=== PATIENT | male | born 1950 | race Caucasian/White ===

== ENCOUNTER 2017-10-23 13:47 | Inpatient (IN) | payer MEDICARE, OTHER ==
[2017-10-23] MEDS ORDERED: NovoLOG Insulin SQ PRN (14:00)
[2017-10-23 15:19] LABS: BASOPHIL % 0.2 % (0.0-0.4); Basophil (Absolute #) 0.02 (0-0.4); Eosinophil (Absolute #) 0 (0-0.5); Granulocyte Absolute (ANC) 9.75 (1.4-6.9); Granulocytes % 83.3 % (36.0-66.0); Hematocrit 42.5 % (42-50); Hemoglobin 13.7 gm/dl (12.5-18.0); Lymphocyte (Absolute #) 1.14 (1.0-4.6); Lymphocytes % 9.8 % (24.0-44.0); Mean Cell Volume 89.1 fl (78-100); Mean Corpuscular Hemoglobin 28.7 pg (26-32); Mean Corpuscular Hgb Concent. 32.2 g/dl (32-36); Mean Platelet Volume 8.7 fl (6-9.5); Monocyte (Absolute #) 0.78 (0.0-1.3); Monocytes % 6.7 % (0.0-12.0); Platelet Count 264 K/mm3 (150-450); Red Blood Count 4.77 M/mm3 (4.1-5.6); Red Cell Distribution Width 17.3 % (11.5-14.0); White Blood Count 11.7 K/mm3 (4.0-10.5)
--- NOTE | 2017-10-23 15:31 | XRAY ---
Exam: Right lower extremity duplex Doppler venous ultrasound from 10/23/2017. Comparison: Left lower extremity duplex Doppler venous ultrasound exam from 03/21/2015. Indication: Right lower leg cellulitis. Findings: Examination was carried out in the usual manner from right groin to knee using grayscale imaging, color flow imaging, Doppler tracings, and transducer compression. Images were also obtained of the medial aspect of the right ankle at the level of the distal posterior tibial veins. Echogenic clot consistent with DVT is seen from the right mid superficial femoral vein through the popliteal vein. No transducer compression was seen at these levels. Subcutaneous soft tissue swelling/edema is noted. The right common femoral vein, distal greater saphenous vein, and proximal superficial femoral vein appeared unremarkable. The visualized profunda femoral vein within the proximal right thigh appeared unremarkable. Normal transducer compression was seen at these levels. In addition, there was normal compression of the distal posterior tibial veins medial to the left ankle. Subcutaneous soft tissue swelling/edema is again seen at this level. Incidentally, a 3.8 cm in length, enlarged, but benign-appearing lymph node is seen within the right groin. Impression: 1. Findings consistent with deep venous thrombosis extending from the popliteal vein up to the mid superficial femoral vein of the right lower extremity. 2. Subcutaneous edema/soft tissue swelling is noted about the distal right thigh and distal right lower leg. 3. An enlarged, benign-appearing lymph node is seen within the right groin measuring 3.8 cm in greatest length.
[2017-10-23] MEDS ORDERED: TYLENOL 325 MG PO PRN (15:53)
[2017-10-23] MEDS ORDERED: Zofran 4 MG/2 ML VIAL IV PRN (15:53)
[2017-10-23] MEDS ORDERED: OXYCODONE-ACETAMINOPHEN 10-325 PO PRN (15:53)
[2017-10-23] MEDS ORDERED: VANCOCIN IV SCH (16:00)
[2017-10-23] MEDS ORDERED: DEXTROSE 5% IV SCH (16:00)
[2017-10-23] MEDS ORDERED: [UNRECOGNIZED DRUG - OTHER] IV SCH (16:00)
[2017-10-23] MEDS: ENOXAPARIN SODIUM SQ SCH (16:09)
[2017-10-23] MEDS ORDERED: Nitrostat 0.4 MG Tablet SL PRN (16:45)
[2017-10-23] MEDS: Novolin 70/30 SQ SCH (17:12)
[2017-10-23] MEDS ORDERED: MEDICATION INTERVENTION MC SCH (17:30)
[2017-10-23 18:48] LABS: ALBUMIN 3.8 g/dL (3.5-5.0); BILIRUBIN,TOTAL 1.3 mg/dL (0.2-1.3); Calcium 9.3 mg/dL (8.4-10.2); Creatinine 1 1.56 mg/dL (0.66-1.25); Total Protein 7.6 g/dL (6.3-8.2)
[2017-10-23 18:50] LABS: Potassium 4.4 mmol/L (3.5-5.1)
[2017-10-23] MEDS ORDERED: FLUTICASONE IH SCH (19:00)
[2017-10-23] MEDS ORDERED: SALMETEROL IH SCH (19:00)
[2017-10-23 19:01] LABS: ANION GAP 14.4 MEQ/L (5-15)
[2017-10-23] MEDS: Advair Hfa 115/21 Common canister IH SCH (19:47)
[2017-10-23] MEDS: ZOCOR 20MG PO SCH (21:31)
[2017-10-23] MEDS: NEURONTIN 300 MG PO SCH (21:32)
[2017-10-23] MEDS: Coreg 3.125 MG PO SCH (21:32)
[2017-10-23] MEDS: Flomax 0.4 MG PO SCH (21:32)
[2017-10-23] MEDS ORDERED: ELIQUIS 5 MG TABLET PO SCH (22:00)
[2017-10-23] MEDS ORDERED: NON-FORMULARY ITEM PO ONE (22:00)
[2017-10-23] MEDS ORDERED: Novolin 70/30 SQ SCH (22:00)
[2017-10-23] MEDS ORDERED: ACLIDINIUM BROMIDE 400 MCG IH SCH (22:00)
[2017-10-23] MEDS ORDERED: Coreg 6.25 MG PO SCH (22:00)
[2017-10-24] MEDS ORDERED: ENOXAPARIN SODIUM SQ ONE (04:08)
[2017-10-24] MEDS: ENOXAPARIN SODIUM SQ SCH ×2 (04:09→15:24)
[2017-10-24] MEDS ORDERED: NON-FORMULARY ITEM PO ONE (08:00)
[2017-10-24] MEDS: Novolin 70/30 SQ SCH ×2 (08:01→17:23)
--- NOTE | 2017-10-24 08:16 | PCM.NOTE ---
Date and Time: 10/24/17812 Subjective Assessment: patient comfortable, no new complaints or concerns. feels ok, tolerating po. chills seem better today Objective Exam General Appearance: no apparent distress, obese Skin Exam: normal color, warm, dry Respiratory Exam: normal breath sounds, lungs clear, No respiratory distress Cardiovascular Exam: regular rate/rhythm, normal heart sounds Extremity Exam: other (right lower extremity erythematous, warm to touch. 2+ swelling, small open area right anterior barrios) OBJECTIVE DATA Vital Signs: Vital Signs - 24 hr Temp Pulse Resp BP Pulse Ox 10/24/17 07:11 97.9 F 67 18 111/53 96 10/24/17 04:10 98.5 F 60 18 105/56 96 10/23/17 23:51 98.9 F 77 20 90/52 96 10/23/17 20:28 84 18 93 L 10/23/17 20:00 100.2 F 81 24 99/57 92 L 10/23/17 16:00 99.6 F 10/23/17 14:16 98.8 F 78 18 110/57 97 Oxygen-Last 24 hours O2 Percentage 2 Liters = 28% O2 Percentage 3 Liters = 32% O2 Percentage 2 Liters = 28% Pain Assessment - Last Documented Pain Intensity 0 Pain Scale Used 0-10 Pain Scale,FLACC Intake and Output: Intake & Output 10/21/17 10/22/17 10/23/17 10/24/17 11:59 11:59 11:59 11:59 Intake Total 300 Balance 300 Weight 114.3 kg Lab Results: Accuchecks Date 10/23/17 Time 21:47 Accucheck Value: 161 Accucheck Value: 164 Lab Results-Last 24 Hours 10/23/17 10/23/17 Range/Units 15:10 15:10 WBC 11.7 H (4.0-10.5) K/mm3 RBC 4.77 (4.1-5.6) M/mm3 Hgb 13.7 (12.5-18.0) gm/dl Hct 42.5 (42-50) % MCV 89.1 (78-100) fl MCH 28.7 (26-32) pg MCHC 32.2 (32-36) g/dl RDW 17.3 H (11.5-14.0) % Plt Count 264 (150-450) K/mm3 MPV 8.7 (6-9.5) fl Gran % 83.3 H (36.0-66.0) % Eos # (Auto) 0 (0-0.5) Absolute Lymphs (auto) 1.14 (1.0-4.6) Absolute Monos (auto) 0.78 (0.0-1.3) Lymphocytes % 9.8 L (24.0-44.0) % Monocytes % 6.7 (0.0-12.0) % Eosinophils % 0.0 (0.00-5.0) % Basophils % 0.2 (0.0-0.4) % Absolute Granulocytes 9.75 H (1.4-6.9) Basophils # 0.02 (0-0.4) Sodium 138 (137-145) mmol/L Potassium 4.4 (3.5-5.1) mmol/L Chloride 104 (98-107) mmol/L Carbon Dioxide 24 (22-30) mmol/L Anion Gap 14.4 (5-15) MEQ/L BUN 23 H (9-20) mg/dL Creatinine 1.56 H (0.66-1.25) mg/dL Estimated GFR 47.3 ML/MIN Glucose 199 H (74-106) mg/dL Calcium 9.3 (8.4-10.2) mg/dL Total Bilirubin 1.30 (0.2-1.3) mg/dL AST 17 (17-59) U/L ALT 9 (0-50) U/L Alkaline Phosphatase 68 (38-126) U/L Serum Total Protein 7.6 (6.3-8.2) g/dL Albumin 3.8 (3.5-5.0) g/dL Radiology Exams: Radiology Procedures Category Date Time Status VENOUS UNILAT/LIMITED EXTREMIT [US] Routine Exams 10/23/17 14:30 Completed Multi-Disciplinary Progress Notes: Multi-Disciplinary Progress Notes 10/23/17 16:31 Physical Therapy Note by Zulema Linder INITIATED THIS PM .....PALLIATIVE TX STARTED = BARRIER OINTMENT TO BOTH LOWER LEGS AND FEET; ICE APPLICATION FOR LOCALIZED COOLING OF WARM,RED,PAINFUL RIGHT LOWER LEG. WILL RE-ASSESS IN THE AM. ADVISED NURSING TO CONTINUE TOPICAL TXS INDICATED. Initialized on 10/23/17 16:31 - END OF NOTE 10/23/17 15:24 Pharmacy Note by Bala Ibarra PHARMAC[facility] DOSING VANCOMYCIN: LOADING DOSE = 2.25 GM 1XONLY. WAITING ON LABS FOR MAINTENANCE DOSE. TERRANCE Initialized on 10/23/17 15:24 - END OF NOTE Assessment/Plan (1) Cellulitis Current Visit: Yes Status: Acute Onset Date: ~10/23/17 Assessment & Plan: continue vanc and rocephin at this time. Code(s): L03.90 - CELLULITIS, UNSPECIFIED (2) DVT (deep venous thrombosis) Current Visit: Yes Status: Acute Assessment & Plan: on lovenox, developed while on Eliquis Code(s): I82.409 - ACUTE EMBOLISM AND THOMBOS UNSP DEEP VN UNSP LOWER EXTREMITY (3) Peripheral vascular disease Current Visit: Yes Status: Acute Assessment & Plan: appears stable at this time Code(s): I73.9 - PERIPHERAL VASCULAR DISEASE, UNSPECIFIED (4) Diabetes mellitus type 2 in obese Current Visit: Yes Status: Acute Assessment & Plan: stable on current regimen Code(s): E11.69 - TYPE 2 DIABETES MELLITUS WITH OTHER SPECIFIED COMPLICATION; E66.9 - OBESITY, UNSPECIFIED
[2017-10-24] MEDS: PLAVIX 75 MG Tablet PO SCH (09:16)
[2017-10-24] MEDS: NEURONTIN 300 MG PO SCH ×3 (09:16→21:54)
[2017-10-24] MEDS: Pepcid 20 MG PO SCH (09:16)
[2017-10-24] MEDS: Altace 1.25 MG PO SCH (09:16)
[2017-10-24] MEDS: ROCEPHIN 1 Gm-D5w 50 ml Bag** 1 G/50 ML IVPB IV SCH (09:16)
[2017-10-24] MEDS: Tricor 145 MG PO SCH (09:16)
[2017-10-24] MEDS: Imdur 60MG PO SCH (09:16)
[2017-10-24] MEDS: Coreg 3.125 MG PO SCH ×2 (09:17→21:54)
[2017-10-24] MEDS: LASIX 20 MG PO SCH (09:17)
[2017-10-24] MEDS: Protonix 40MG Tablet PO SCH (09:17)
[2017-10-24] MEDS: PATIENT OWN MEDICATION PO SCH (09:18)
[2017-10-24] MEDS ORDERED: PLAVIX 75 MG Tablet PO SCH (10:00)
[2017-10-24] MEDS ORDERED: NON-FORMULARY ITEM (Omeprazole [Prilosec] 40 MG) PO SCH (10:00)
[2017-10-24] MEDS ORDERED: NON-FORMULARY ITEM (Simvastatin 40 Mg [Zocor 40 Mg] 20 MG) PO SCH (10:00)
[2017-10-24] MEDS ORDERED: RAMIPRIL 2.5 MG PO SCH (10:00)
[2017-10-24] MEDS ORDERED: LASIX 20 MG PO SCH (10:00)
[2017-10-24] MEDS: Advair Hfa 115/21 Common canister IH SCH ×2 (10:15→19:28)
[2017-10-24] MEDS: PATIENT OWN MEDICATION IH SCH ×2 (10:15→19:29)
[2017-10-24] MEDS: Pletal 100 MG PO SCH (17:23)
[2017-10-24] MEDS: Flomax 0.4 MG PO SCH (21:54)
[2017-10-24] MEDS: ZOCOR 20MG PO SCH (21:54)
[2017-10-24] MEDS: DEXTROSE 5% IV SCH (21:57)
[2017-10-24] MEDS: VANCOCIN IV SCH (21:57)
[2017-10-24] MEDS: [UNRECOGNIZED DRUG - OTHER] IV SCH (21:57)
[2017-10-25] MEDS: ENOXAPARIN SODIUM SQ SCH ×2 (03:36→16:29)
[2017-10-25 06:06] LABS: BASOPHIL % 0.5 % (0.0-0.4); Basophil (Absolute #) 0.03 (0-0.4); Eosinophil % 5.1 % (0.00-5.0); Eosinophil (Absolute #) 0.28 (0-0.5); Granulocyte Absolute (ANC) 3.36 (1.4-6.9); Granulocytes % 61.1 % (36.0-66.0); Hematocrit 37.2 % (42-50); Hemoglobin 11.9 gm/dl (12.5-18.0); Lymphocyte (Absolute #) 1.16 (1.0-4.6); Lymphocytes % 21.1 % (24.0-44.0); Mean Cell Volume 89.6 fl (78-100); Mean Platelet Volume 9.5 fl (6-9.5); Monocyte (Absolute #) 0.67 (0.0-1.3); Monocytes % 12.2 % (0.0-12.0); Platelet Count 261 K/mm3 (150-450); Red Blood Count 4.15 M/mm3 (4.1-5.6); White Blood Count 5.5 K/mm3 (4.0-10.5)
[2017-10-25 06:24] LABS: Mean Corpuscular Hemoglobin 28.6 pg (26-32)
[2017-10-25 06:38] LABS: ANION GAP 9.6 MEQ/L (5-15); Calcium 8.5 mg/dL (8.4-10.2); Creatinine 1 1.57 mg/dL (0.66-1.25); Potassium 3.8 mmol/L (3.5-5.1)
[2017-10-25] MEDS: PATIENT OWN MEDICATION IH SCH ×2 (07:50→19:24)
[2017-10-25] MEDS: Advair Hfa 115/21 Common canister IH SCH ×2 (07:50→19:24)
[2017-10-25] MEDS: Novolin 70/30 SQ SCH ×2 (07:55→16:31)
[2017-10-25] MEDS: Pletal 100 MG PO SCH ×2 (07:55→16:28)
--- NOTE | 2017-10-25 08:20 | PCM.NOTE ---
Date and Time: 10/25/17818 Subjective Assessment: doing well today, no problems or complaints. thinks he feels about the same at this point Objective Exam General Appearance: no apparent distress, alert Respiratory Exam: normal breath sounds, lungs clear, No respiratory distress Cardiovascular Exam: regular rate/rhythm, normal heart sounds Gastrointestinal/Abdomen Exam: soft, No tenderness, No mass Extremity Exam: other (right lower leg erythematous, warm to touch. 1+ swelling) OBJECTIVE DATA Vital Signs: Vital Signs - 24 hr Temp Pulse Resp BP Pulse Ox 10/25/17 07:51 64 16 94 L 10/25/17 04:00 98.4 F 57 L 20 101/56 97 10/25/17 00:00 98.3 F 64 18 97/52 96 10/24/17 20:00 97.9 F 69 20 111/59 96 10/24/17 19:34 67 16 94 L 10/24/17 16:19 98 F 69 20 100/59 95 10/24/17 12:00 97.7 F 75 18 89/50 94 L 10/24/17 10:00 676 H 18 92 L Oxygen-Last 24 hours O2 Percentage 3 Liters = 32% Pain Assessment - Last Documented Pain Intensity 0 Pain Scale Used 0-10 Pain Scale,FLACC Intake and Output: Intake & Output 10/22/17 10/23/17 10/24/17 10/25/17 11:59 11:59 11:59 11:59 Intake Total 660 2334 Output Total 400 900 Balance 260 1434 Weight 114.3 kg 114.3 kg Lab Results: Accuchecks Date 10/24/17 Time 22:27 Accucheck Value: 162 Accucheck Value: 184 Accucheck Value: 117 Lab Results-Last 24 Hours 10/25/17 10/25/17 Range/Units 05:40 05:40 WBC 5.5 (4.0-10.5) K/mm3 RBC 4.15 (4.1-5.6) M/mm3 Hgb 11.9 L (12.5-18.0) gm/dl Hct 37.2 L (42-50) % MCV 89.6 (78-100) fl MCH 28.6 (26-32) pg MCHC 32.0 (32-36) g/dl RDW 17.0 H (11.5-14.0) % Plt Count 261 (150-450) K/mm3 MPV 9.5 (6-9.5) fl Gran % 61.1 (36.0-66.0) % Eos # (Auto) 0.28 (0-0.5) Absolute Lymphs (auto) 1.16 (1.0-4.6) Absolute Monos (auto) 0.67 (0.0-1.3) Lymphocytes % 21.1 L (24.0-44.0) % Monocytes % 12.2 H (0.0-12.0) % Eosinophils % 5.1 H (0.00-5.0) % Basophils % 0.5 (0.0-0.4) % Absolute Granulocytes 3.36 (1.4-6.9) Basophils # 0.03 (0-0.4) Sodium 138 (137-145) mmol/L Potassium 3.8 (3.5-5.1) mmol/L Chloride 108 H (98-107) mmol/L Carbon Dioxide 24 (22-30) mmol/L Anion Gap 9.6 (5-15) MEQ/L BUN 24 H (9-20) mg/dL Creatinine 1.57 H (0.66-1.25) mg/dL Estimated GFR 46.9 ML/MIN Glucose 107 H (74-106) mg/dL Calcium 8.5 (8.4-10.2) mg/dL Radiology Exams: Radiology Procedures Category Date Time Status VENOUS UNILAT/LIMITED EXTREMIT [US] Routine Exams 10/23/17 14:30 Completed Assessment/Plan (1) Cellulitis Current Visit: Yes Status: Acute Onset Date: ~10/23/17 Assessment & Plan: continue vanc and rocephin, improving at this time Code(s): L03.90 - CELLULITIS, UNSPECIFIED (2) DVT (deep venous thrombosis) Current Visit: Yes Status: Acute Onset Date: ~10/23/17 Assessment & Plan: continue Lovenox, called report to Dr Armen Banks Vascular surgeon at [facility] yesterday and left a message with nursing for update per patient request. Code(s): I82.409 - ACUTE EMBOLISM AND THOMBOS UNSP DEEP VN UNSP LOWER EXTREMITY (3) Peripheral vascular disease Current Visit: Yes Status: Acute Onset Date: ~05/30/18 Code(s): I73.9 - PERIPHERAL VASCULAR DISEASE, UNSPECIFIED (4) Diabetes mellitus type 2 in obese Current Visit: Yes Status: Acute Onset Date: ~10/23/17 Code(s): E11.69 - TYPE 2 DIABETES MELLITUS WITH OTHER SPECIFIED COMPLICATION; E66.9 - OBESITY, UNSPECIFIED
[2017-10-25] MEDS: NEURONTIN 300 MG PO SCH ×3 (10:23→22:05)
[2017-10-25] MEDS: Protonix 40MG Tablet PO SCH (10:23)
[2017-10-25] MEDS: Tricor 145 MG PO SCH (10:23)
[2017-10-25] MEDS: ROCEPHIN 1 Gm-D5w 50 ml Bag** 1 G/50 ML IVPB IV SCH (10:23)
[2017-10-25] MEDS: Pepcid 20 MG PO SCH (10:23)
[2017-10-25] MEDS: PLAVIX 75 MG Tablet PO SCH (10:23)
[2017-10-25] MEDS: Imdur 60MG PO SCH (10:24)
[2017-10-25] MEDS: PATIENT OWN MEDICATION PO SCH (10:24)
[2017-10-25] MEDS: Altace 1.25 MG PO SCH (10:24)
[2017-10-25] MEDS: Coreg 3.125 MG PO SCH ×2 (10:24→22:05)
[2017-10-25] MEDS: LASIX 20 MG PO SCH (10:24)
[2017-10-25] MEDS: Flomax 0.4 MG PO SCH (22:05)
[2017-10-25] MEDS: DEXTROSE 5% IV SCH (22:05)
[2017-10-25] MEDS: ZOCOR 20MG PO SCH (22:05)
[2017-10-25] MEDS: VANCOCIN IV SCH (22:05)
[2017-10-25] MEDS: [UNRECOGNIZED DRUG - OTHER] IV SCH (22:05)
[2017-10-26] MEDS: ENOXAPARIN SODIUM SQ SCH ×2 (03:45→17:10)
[2017-10-26] MEDS: Pletal 100 MG PO SCH ×2 (07:52→17:10)
[2017-10-26] MEDS: Novolin 70/30 SQ SCH ×2 (07:52→17:10)
[2017-10-26] MEDS: Protonix 40MG Tablet PO SCH (09:43)
[2017-10-26] MEDS: Pepcid 20 MG PO SCH (09:43)
[2017-10-26] MEDS: Coreg 3.125 MG PO SCH ×2 (09:44→22:10)
[2017-10-26] MEDS: NEURONTIN 300 MG PO SCH ×3 (09:44→22:10)
[2017-10-26] MEDS: LASIX 20 MG PO SCH (09:44)
[2017-10-26] MEDS: PLAVIX 75 MG Tablet PO SCH (09:44)
[2017-10-26] MEDS: Tricor 145 MG PO SCH (09:44)
[2017-10-26] MEDS: Imdur 60MG PO SCH (09:44)
[2017-10-26] MEDS: Altace 1.25 MG PO SCH (09:44)
[2017-10-26] MEDS: ROCEPHIN 1 Gm-D5w 50 ml Bag** 1 G/50 ML IVPB IV SCH (09:45)
[2017-10-26] MEDS: PATIENT OWN MEDICATION PO SCH (09:51)
[2017-10-26] MEDS: Advair Hfa 115/21 Common canister IH SCH ×2 (10:19→20:23)
[2017-10-26] MEDS: PATIENT OWN MEDICATION IH SCH ×2 (10:20→20:23)
--- NOTE | 2017-10-26 12:23 | PCM.NOTE ---
Date and Time: 10/26/17 1217 Subjective Assessment: Pt is standing up at the sink cleaning his cpap mask. Has been standing at least 20 min. Complaining of 8/10 R foot pain. [place] po. Doesn't think there is an improvement in the leg since admission. - Review of Systems Constitutional: No Fever Skin: Cellulitis Objective Exam General Appearance: no apparent distress, alert, obese Neurologic Exam: oriented x 3, cooperative Neck Exam: normal inspection Respiratory Exam: normal breath sounds, lungs clear, No crackles/rales, No rhonchi, No wheezing Cardiovascular Exam: regular rate/rhythm, normal heart sounds, No murmur Extremity Exam: other (RLE: anterio mid lower leg with approx 2x2cm defect covered with barrier cream. leg and foot with 1+ edema throughout. leg erythematous distal 2/3. 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; there is an irregular defect at that site, covered with barrier cream.) OBJECTIVE DATA Vital Signs: Vital Signs - 24 hr Temp Pulse Resp BP Pulse Ox 10/26/17 12:00 98.3 F 61 18 98/56 94 L 10/26/17 10:22 72 18 95 10/26/17 08:00 18 10/26/17 07:32 98.6 F 59 L 18 107/57 94 L 10/26/17 04:00 98.5 F 66 16 93/54 95 10/26/17 00:00 17 10/25/17 23:51 98.3 F 103 H 17 107/75 95 10/25/17 20:00 97.7 F 69 20 92/55 95 10/25/17 19:24 68 18 94 L 10/25/17 16:00 98.4 F 71 18 108/55 95 Oxygen-Last 24 hours O2 Percentage 3 Liters = 32% Pain Assessment - Last Documented Pain Intensity 1 Pain Scale Used 0-10 Pain Scale Intake and Output: Intake & Output 10/24/17 10/25/17 10/26/17 10/27/17 11:59 11:59 11:59 11:59 Intake Total 660 6484 2099 Output Total 400 900 Balance 260 9343 209 Weight 114.3 kg 114.3 kg Lab Results: Accuchecks Date 10/26/17 Date 10/26/17 Date 10/25/17 Date 10/25/17 Time 11:30 Time 07:30 Time 21:00 Time 16:30 Accucheck Value: 113 Accucheck Value: 179 Accucheck Value: 175 Accucheck Value: 175 Multi-Disciplinary Progress Notes: Multi-Disciplinary Progress Notes 10/25/17 13:54 Case Management Note by Genevieve Dee CALL TO [facility] TO REPORT THAT PT WAS IN HOSPITAL. SPOKE WITH ELISEO. REQUESTS THAT DISCHARGE INFORMATION BE FAXED TO [phone] ON DISCHARGE. Initialized on 10/25/17 13:54 - END OF NOTE Assessment/Plan (1) Cellulitis Current Visit: Yes Status: Acute Onset Date: ~10/23/17 Qualifiers: Site of cellulitis: extremity Site of cellulitis of extremity: lower extremity Laterality: right Qualified Code(s): L03.115 - Cellulitis of right lower limb Assessment & Plan: Pt is on Vancomycin and rocephin day #3. Will continue current treatment. Clinically stable. Code(s): L03.90 - CELLULITIS, UNSPECIFIED (2) DVT (deep venous thrombosis) Current Visit: Yes Status: Acute Onset Date: ~10/23/17 Qualifiers: DVT location: lower extremity Affected thrombotic vein of extremity: popliteal Chronicity: acute Laterality: right Qualified Code(s): I82.431 - Acute embolism and thrombosis of right popliteal vein Assessment & Plan: On lovenox, treatment dose. He is not having pain in the leg,but in the foot. Code(s): I82.409 - ACUTE EMBOLISM AND THOMBOS UNSP DEEP VN UNSP LOWER EXTREMITY (3) Diabetes mellitus type 2 in obese Current Visit: Yes Status: Chronic Onset Date: ~10/23/17 Assessment & Plan: BS 98-179 Code(s): E11.69 - TYPE 2 DIABETES MELLITUS WITH OTHER SPECIFIED COMPLICATION; E66.9 - OBESITY, UNSPECIFIED (4) Diabetic foot ulcer Current Visit: Yes Status: Acute Onset Date: ~10/23/17 Qualifiers: Diabetes mellitus type: type 2 Laterality: right Code(s): E11.621 - TYPE 2 DIABETES MELLITUS WITH FOOT ULCER; L97.509 - NON- PRESSURE CHRONIC ULCER OTH PRT UNSP FOOT W UNSP SEVERITY (5) Peripheral vascular disease Current Visit: Yes Status: Chronic Onset Date: ~10/23/17 Code(s): I73.9 - PERIPHERAL VASCULAR DISEASE, UNSPECIFIED
[2017-10-26] MEDS: DEXTROSE 5% IV SCH (22:05)
[2017-10-26] MEDS: VANCOCIN IV SCH (22:05)
[2017-10-26] MEDS: [UNRECOGNIZED DRUG - OTHER] IV SCH (22:05)
[2017-10-26] MEDS: Flomax 0.4 MG PO SCH (22:10)
[2017-10-26] MEDS: ZOCOR 20MG PO SCH (22:10)
[2017-10-27] MEDS: ENOXAPARIN SODIUM SQ SCH ×2 (03:34→15:49)
[2017-10-27] MEDS: Advair Hfa 115/21 Common canister IH SCH ×2 (08:05→19:27)
[2017-10-27] MEDS: PATIENT OWN MEDICATION IH SCH ×2 (08:06→19:29)
[2017-10-27] MEDS: Pletal 100 MG PO SCH ×2 (08:10→15:45)
[2017-10-27] MEDS: Novolin 70/30 SQ SCH ×2 (08:11→17:25)
[2017-10-27] MEDS: Coreg 3.125 MG PO SCH ×2 (09:58→21:29)
[2017-10-27] MEDS: ROCEPHIN 1 Gm-D5w 50 ml Bag** 1 G/50 ML IVPB IV SCH (09:58)
[2017-10-27] MEDS: NEURONTIN 300 MG PO SCH ×3 (09:58→21:30)
[2017-10-27] MEDS: LASIX 20 MG PO SCH (09:58)
[2017-10-27] MEDS: Protonix 40MG Tablet PO SCH (09:58)
[2017-10-27] MEDS: Imdur 60MG PO SCH (09:58)
[2017-10-27] MEDS: Pepcid 20 MG PO SCH (09:58)
[2017-10-27] MEDS: Altace 1.25 MG PO SCH (09:58)
[2017-10-27] MEDS: Tricor 145 MG PO SCH (09:58)
[2017-10-27] MEDS: PLAVIX 75 MG Tablet PO SCH (09:58)
[2017-10-27] MEDS: PATIENT OWN MEDICATION PO SCH (09:59)
[2017-10-27 10:17] LABS: Hematocrit 40.9 % (42-50); Mean Cell Volume 89.5 fl (78-100); Mean Corpuscular Hemoglobin 28.4 pg (26-32); Mean Corpuscular Hgb Concent. 31.8 g/dl (32-36); Mean Platelet Volume 8.9 fl (6-9.5); Platelet Count 254 K/mm3 (150-450); Red Blood Count 4.57 M/mm3 (4.1-5.6); Red Cell Distribution Width 16.9 % (11.5-14.0); White Blood Count 5.2 K/mm3 (4.0-10.5)
[2017-10-27 10:32] LABS: ANION GAP 13.6 MEQ/L (5-15); Calcium 9.2 mg/dL (8.4-10.2); Creatinine 1 1.85 mg/dL (0.66-1.25); Potassium 4.2 mmol/L (3.5-5.1)
--- NOTE | 2017-10-27 10:39 | PCM.NOTE ---
Date and Time: 10/27/17 1034 Subjective Assessment: Denies any foot pain while at rest; when he is initially up on the foot he has pain. This is apparently a chronic issue. - Review of Systems Constitutional: No Fever Musculoskeletal: Joint Pain Objective Exam General Appearance: no apparent distress, obese, other (standing at the sink brushing his teeth) Neurologic Exam: alert, oriented x 3, cooperative Eye Exam: eyes nml inspection Ears, Nose, Throat Exam: moist mucous membranes Respiratory Exam: normal breath sounds, lungs clear, No crackles/rales, No rhonchi, No wheezing Cardiovascular Exam: regular rate/rhythm, normal heart sounds, No murmur Extremity Exam: other (LLE venous stasis change distally RLE - erythema distal 2 /3 lower leg. Generalized edema of leg as before. Defect anterior lower leg ( covered with barrier cream) with serous drainage. Defect at site of 2nd digit amputation, covered with barrier cream. toes without erythema.) Back Exam: normal inspection, No rash OBJECTIVE DATA Vital Signs: Vital Signs - 24 hr Temp Pulse Resp BP Pulse Ox 10/27/17 08:06 65 20 93 L 10/27/17 08:00 20 10/27/17 07:49 98.1 F 61 18 118/58 97 10/27/17 04:00 99.1 F 65 18 120/58 92 L 10/27/17 00:00 98.5 F 65 18 101/54 93 L 10/26/17 20:24 63 16 92 L 10/26/17 20:00 16 10/26/17 19:56 98.3 F 69 16 113/55 94 L 10/26/17 16:00 98.5 F 71 18 111/55 91 L 10/26/17 12:00 98.3 F 61 18 98/56 94 L Pain Assessment - Last Documented Pain Intensity 1 Pain Scale Used [facility] Intake and Output: Intake & Output 10/24/17 10/25/17 10/26/17 10/27/17 11:59 11:59 11:59 11:59 Intake Total 660 8662 2099 1280 Output Total 400 900 Balance 260 8627 2099 1280 Weight 114.3 kg 114.3 kg Lab Results: Accuchecks Date 10/27/17 Date 10/26/17 Date 10/26/17 Date 10/26/17 Time 08:00 Time 21:00 Time 16:30 Time 11:30 Accucheck Value: 109 Accucheck Value: 138 Accucheck Value: 151 Accucheck Value: 113 Lab Results-Last 24 Hours 18 10/27/17 Range/Units 21:34 10:10 WBC 5.2 (4.0-10.5) K/mm3 RBC 4.57 (4.1-5.6) M/mm3 Hgb 13.0 (12.5-18.0) gm/dl Hct 40.9 L (42-50) % MCV 89.5 (78-100) fl MCH 28.4 (26-32) pg MCHC 31.8 L (32-36) g/dl RDW 16.9 H (11.5-14.0) % Plt Count 254 (150-450) K/mm3 MPV 8.9 (6-9.5) fl Vancomycin Trough 18.81 (10-20) ug/mL Assessment/Plan (1) Cellulitis Current Visit: Yes Status: Acute Onset Date: ~10/23/17 Qualifiers: Site of cellulitis: extremity Site of cellulitis of extremity: lower extremity Laterality: right Qualified Code(s): L03.115 - Cellulitis of right lower limb Assessment & Plan: On vancomycin and rocephin, day #4. Will continue current treatment. The pain in the foot does not appear related to the cellulitis or the DVT. Code(s): L03.90 - CELLULITIS, UNSPECIFIED (2) DVT (deep venous thrombosis) Current Visit: Yes Status: Acute Onset Date: ~10/23/17 Qualifiers: DVT location: lower extremity Affected thrombotic vein of extremity: popliteal Chronicity: acute Laterality: right Qualified Code(s): I82.431 - Acute embolism and thrombosis of right popliteal vein Assessment & Plan: On lovenox treatment dose. Dr. De La Cruz to determine further tx tomorrow for this pt with a DVT while on anticoagulant. Code(s): I82.409 - ACUTE EMBOLISM AND THOMBOS UNSP DEEP VN UNSP LOWER EXTREMITY (3) Diabetes mellitus type 2 in obese Current Visit: Yes Status: Chronic Onset Date: ~10/23/17 Assessment & Plan: BS mostly 102-175. Code(s): E11.69 - TYPE 2 DIABETES MELLITUS WITH OTHER SPECIFIED COMPLICATION; E66.9 - OBESITY, UNSPECIFIED (4) Diabetic foot ulcer Current Visit: Yes Status: Acute Onset Date: ~10/23/17 Qualifiers: Diabetes mellitus type: type 2 Laterality: right Code(s): E11.621 - TYPE 2 DIABETES MELLITUS WITH FOOT ULCER; L97.509 - NON- PRESSURE CHRONIC ULCER OTH PRT UNSP FOOT W UNSP SEVERITY (5) Peripheral vascular disease Current Visit: Yes Status: Chronic Onset Date: ~10/23/17 Code(s): I73.9 - PERIPHERAL VASCULAR DISEASE, UNSPECIFIED
[2017-10-27] MEDS: ZOCOR 20MG PO SCH (21:30)
[2017-10-27] MEDS: Flomax 0.4 MG PO SCH (21:30)
[2017-10-27] MEDS ORDERED: VANCOCIN 1 GM VIAL*** 1.5 GM in Dextrose 5%-1/4NS IV Soln. 500 ML 500 ML IV SCH (22:00)
[2017-10-28] MEDS: ENOXAPARIN SODIUM SQ SCH (05:08)
[2017-10-28] MEDS: Advair Hfa 115/21 Common canister IH SCH (07:20)
[2017-10-28] MEDS: PATIENT OWN MEDICATION IH SCH (07:29)
--- NOTE | 2017-10-28 08:15 | PCM.DS ---
Discharge Summary Date of Admission: 10/23/17 13:52 Admitting Physician: AYDEN BORJA Primary Care Provider: AYDEN BORJA Allergies Allergies Iodinated Contrast- Oral and IV Dye Allergy (Severe, Verified 10/23/17 15:08) Iodine and Iodide Containing Produc Allergy (Severe, Verified 10/23/17 15:07) Rash Hospital Summary - Hospital Course Hospital Course: patient was admitted with RLE cellulitis, has a history of PVD with multiple surgeries to RLE including amputation of toe and bypass grafting. he was found to have new DVT RLE, has been on vanc and rocephin, warmth and swelling improved. RLE still discolored likely secondary to DVT and chronic PVD - Vitals & Intake/Output Vital Signs: Vital Signs Temperature 98.6 F 10/28/17 06:56 Pulse Rate 61 10/28/17 07:33 Respiratory Rate 18 10/28/17 07:33 Blood Pressure 117/58 10/28/17 06:56 O2 Sat by Pulse Oximetry 93 L 10/28/17 07:33 Oxygen-Last Documented O2 Percentage 3 Liters = 32% Intake & Output: Intake & Output 10/25/17 10/26/17 10/27/17 10/28/17 11:59 11:59 11:59 11:59 Intake Total 2574 2099 1280 580 Output Total 900 Balance 1674 2099 1280 580 Weight 114.3 kg - Lab Result Diagrams: 10/27/17 10:10 10/27/17 10:10 Lab Results-Last 24 Hrs: Accuchecks Date 10/27/17 Date 10/27/17 Time 16:30 Time 11:30 Accucheck Value: 230 Accucheck Value: 136 Accucheck Value: 96 Lab Results-Last 24 Hours 10/27/17 10/27/17 Range/Units 10:10 10:10 WBC 5.2 (4.0-10.5) K/mm3 RBC 4.57 (4.1-5.6) M/mm3 Hgb 13.0 (12.5-18.0) gm/dl Hct 40.9 L (42-50) % MCV 89.5 (78-100) fl MCH 28.4 (26-32) pg MCHC 31.8 L (32-36) g/dl RDW 16.9 H (11.5-14.0) % Plt Count 254 (150-450) K/mm3 MPV 8.9 (6-9.5) fl Sodium 141 (137-145) mmol/L Potassium 4.2 (3.5-5.1) mmol/L Chloride 108 H (98-107) mmol/L Carbon Dioxide 23 (22-30) mmol/L Anion Gap 13.6 (5-15) MEQ/L BUN 28 H (9-20) mg/dL Creatinine 1.85 H (0.66-1.25) mg/dL Estimated GFR 38.8 ML/MIN Glucose 113 H (74-106) mg/dL Calcium 9.2 (8.4-10.2) mg/dL Micro Results-Entire Visit: Microbiology 10/23/17 15:10 Blood Culture Gram Stain - Final Blood Not Reportable Blood Culture - Final NO GROWTH 10/23/17 15:13 Blood Culture Gram Stain - Final Blood Not Reportable Blood Culture - Final NO GROWTH Accuchecks Date 10/27/17 Date 10/27/17 Time 16:30 Time 11:30 Accucheck Value: 230 Accucheck Value: 136 Accucheck Value: 96 - Procedures and Test Procedures and Tests throughout Hospitalization: Therapy Orders & Screens 10/23/17 14:09 PT Eval & Treat ( Order) ROUTINE Reason for Eval:: Wound care Diagnosis: Cellulitis RLE 10/23/17 14:58 OT Screen per Nursing Assess ONCE Comment: Protocol Order Physician Instructions: Greater than 3 points order OT Admission Screening Reason For Exam: Triggered on Admission Diagnosis: cellulitis Open Wound/Cellutlitis/Pressure Ulcers: Yes Acute Fx/ORIF/Change in wt bearing status: No Severe MUSCULOSKELETAL pain: No ADL Dysfunction: Yes Acute CVA w/Hemiparesis/Hemiplegia: No Decreased Functional Mobility/Strength: Yes Sprain/Strain: No Acute Post-op Mobility Dysfunction: No Total Points: 9 PT Screen per Nursing Assess ONCE Comment: Protocol Order Physician Instructions: Greater than 3 points order PT Admission Screenin Reason For Exam: Triggered on Admission Diagnosis: cellulitis Open Wound/Cellutlitis/Pressure Ulcers: Yes Acute Fx/ORIF/Change in wt bearing status: No Severe MUSCULOSKELETAL pain: No ADL Dysfunction: Yes Acute CVA w/Hemiparesis/Hemiplegia: No Decreased Functional Mobility/Strength: Yes Sprain/Strain: No Acute Post-op Mobility Dysfunction: No Total Points: 9 Smoking Cessation Education ONCE Comment: Diagnosis: cellulitis Smoking Status: Current every day smoker How long have you smoked: 50 years Have you smoked in the past 12 months: Yes Approximately how many cigarettes per day: 24 Do you dip or chew tobacco: No 10/23/17 19:00 Respiratory MDI BID Comment: advair 115/21 bid Diagnosis: cellulitis Respiratory MDI BID Comment: tudorza 400 mcg bid Diagnosis: cellulitis 10/23/17 20:27 Oxygen NASAL CANNULA 3 lpm Comment: 3l with cpap at night Diagnosis: cellulitis Discharge Exam General Appearance: no apparent distress, alert Skin Exam: normal color, warm, dry Respiratory Exam: normal breath sounds, lungs clear, No respiratory distress Cardiovascular Exam: regular rate/rhythm, normal heart sounds Gastrointestinal/Abdomen Exam: soft, No tenderness, No mass Extremity Exam: other (RLE red, discolored. mild swelling) Final Diagnosis/Problem List - Final Discharge Diagnosis/Problem (1) Cellulitis Current Visit: Yes Status: Acute Onset Date: ~10/23/17 Assessment & Plan: home on po clindamycin (2) DVT (deep venous thrombosis) Current Visit: Yes Status: Acute Onset Date: ~10/23/17 Assessment & Plan: will resume Eliquis and advised patient to f/u with his vascular surgeon Dr Darren BERNARDO for further recommendations. (3) Peripheral vascular disease Current Visit: Yes Status: Chronic Onset Date: ~10/23/17 (4) Diabetes mellitus type 2 in obese Current Visit: Yes Status: Chronic Onset Date: ~10/23/17 - Discharge Disposition: Home, Self-Care Condition: Stable Prescriptions: New Clindamycin HCl 300 mg PO TID #21 capsule Continue Nitroglycerin 0.4 mg Tablet [Nitrostat 0.4 MG Tablet] 0.4 mg SL UD Carvedilol 6.25 mg [Coreg 6.25 MG] 3.125 mg PO BID Simvastatin 40 mg [Zocor 40 mg] 20 mg PO DAILY Isosorbide Mononitrate 30 mg [Imdur 30 MG] 60 mg PO DAILY Ramipril 1.25 mg [Altace 1.25 MG] 2.5 mg PO DAILY Omeprazole [Prilosec] 40 mg PO DAILY Aclidinium [place] [Tudorza Pressair] 400 mcg IH BID Fluticasone/Salmeterol 115/21* [Advair Hfa 115/21 Mcg Inhaler] 2 puff IH BIDRT Insulin NPH/Reg 30 [Novolin 70] 40 unit SQ BID Tamsulosin HCl 0.4 mg [Flomax 0.4 MG] 1 cap PO HS Ranitidine HCl 150 mg PO DAILY Gabapentin 600 mg PO TID Furosemide 20 mg [Lasix 20 mg] 20 mg PO DAILY Fenofibrate Nanocrystallized [Fenofibrate] 1 tablet PO DAILY Empagliflozin [Jardiance] 10 mg PO BID Clopidogrel Bisulfate [Clopidogrel] 75 mg PO DAILY Cilostazol 50 mg PO BID Apixaban [Eliquis 5 mg Tablet] 5 mg PO BID Follow up with: AYDEN BORJA MD [Primary Care Provider] - 1 Week
[2017-10-28] MEDS: Novolin 70/30 SQ SCH (09:21)
[2017-10-28] MEDS: Tricor 145 MG PO SCH (09:23)
[2017-10-28] MEDS: NEURONTIN 300 MG PO SCH (09:23)
[2017-10-28] MEDS: ROCEPHIN 1 Gm-D5w 50 ml Bag** 1 G/50 ML IVPB IV SCH (09:23)
[2017-10-28] MEDS: Pletal 100 MG PO SCH (09:23)
[2017-10-28] MEDS: PLAVIX 75 MG Tablet PO SCH (09:24)
[2017-10-28] MEDS: LASIX 20 MG PO SCH (09:24)
[2017-10-28] MEDS: Pepcid 20 MG PO SCH (09:24)
[2017-10-28] MEDS: Altace 1.25 MG PO SCH (09:24)
[2017-10-28] MEDS: Imdur 60MG PO SCH (09:24)
[2017-10-28] MEDS: Coreg 3.125 MG PO SCH (09:24)
[2017-10-28] MEDS: PATIENT OWN MEDICATION PO SCH (09:24)
[2017-10-28] MEDS: Protonix 40MG Tablet PO SCH (09:27)
[2017-10-28 11:08] VITALS: BP 90/52; PULSE 71; O2SAT 96
[2017-10-28] MEDS ORDERED: TROUGH DRUG LEVELS IJ ONE (21:30)
== END 2017-10-28 13:05 | disposition home health service (06) | DRG 603 ==
LOC: MED SURG 13:52
PROVIDERS: ADMIT Family Medicine; ATTEND Family Medicine
DX: L03.115 Cellulitis of right lower limb (principal); I82.431 Acute embolism and thrombosis of right popliteal vein; I82.409 Acute embolism and thrombosis of unspecified deep veins of unspecified lower extremity; E11.69 Type 2 diabetes mellitus with other specified complication; E66.9 Obesity, unspecified; E11.621 Type 2 diabetes mellitus with foot ulcer; L97.509 Non-pressure chronic ulcer of other part of unspecified foot with unspecified severity; I73.9 Peripheral vascular disease, unspecified; Z79.01 Long term (current) use of anticoagulants; Z79.899 Other long term (current) drug therapy; I25.10 Atherosclerotic heart disease of native coronary artery without angina pectoris; J44.9 Chronic obstructive pulmonary disease, unspecified; M79.673 Pain in unspecified foot
CPT/HCPCS: 36415; 80048; 80053; 80202; 85025; 85027; 87040; 93971; 94640; 94760; J0696; J1650; J1815; J3370; A9270-GY

== ENCOUNTER 2017-11-13 10:43 | Inpatient (IN) | payer MEDICARE, OTHER ==
[2017-11-13] MEDS ORDERED: MORPHINE SULFATE 4 MG INJ IV PRN (11:43)
[2017-11-13] MEDS ORDERED: Zofran 4 MG/2 ML VIAL IV PRN (11:43)
[2017-11-13] MEDS ORDERED: TYLENOL 325 MG PO PRN (11:43)
[2017-11-13] MEDS ORDERED: NovoLOG Insulin SQ PRN (11:45)
[2017-11-13] MEDS ORDERED: Sodium Chloride 0.9% 10 ML FLUSH Syringe IV PRN (11:45)
[2017-11-13 13:03] LABS: BASOPHIL % 0.1 % (0.0-0.4); Basophil (Absolute #) 0.01 (0-0.4); Eosinophil % 3.5 % (0.00-5.0); Eosinophil (Absolute #) 0.26 (0-0.5); Granulocyte Absolute (ANC) 5.62 (1.4-6.9); Granulocytes % 76.5 % (36.0-66.0); Hematocrit 41.3 % (42-50); Hemoglobin 13.3 gm/dl (12.5-18.0); Lymphocyte (Absolute #) 0.91 (1.0-4.6); Lymphocytes % 12.4 % (24.0-44.0); Mean Corpuscular Hemoglobin 28.7 pg (26-32); Mean Corpuscular Hgb Concent. 32.2 g/dl (32-36); Mean Platelet Volume 9.4 fl (6-9.5); Monocyte (Absolute #) 0.55 (0.0-1.3); Monocytes % 7.5 % (0.0-12.0); Platelet Count 245 K/mm3 (150-450); Red Blood Count 4.64 M/mm3 (4.1-5.6); Red Cell Distribution Width 17.4 % (11.5-14.0); White Blood Count 7.4 K/mm3 (4.0-10.5)
[2017-11-13 13:10] LABS: ALBUMIN 3.6 g/dL (3.5-5.0); ANION GAP 17.5 MEQ/L (5-15); BILIRUBIN,TOTAL 0.7 mg/dL (0.2-1.3); Calcium 8.7 mg/dL (8.4-10.2); Creatinine 1 2.15 mg/dL (0.66-1.25); Potassium 4.2 mmol/L (3.5-5.1); Total Protein 7.3 g/dL (6.3-8.2)
[2017-11-13] MEDS: Sodium Chloride 0.9% 10 ML FLUSH Syringe IV SCH ×2 (14:00→21:28)
[2017-11-13] MEDS: VANCOCIN 1 GM VIAL*** 2 GM in Sodium Chloride 0.9% 500 ML 500 ML IV SCH (15:46)
[2017-11-13] MEDS: Nicoderm CQ 21 MG TOP SCH (17:13)
[2017-11-13] MEDS ORDERED: Nitrostat 0.4 MG Tablet SL PRN (17:15)
[2017-11-13] MEDS ORDERED: MEDICATION INTERVENTION MC SCH (17:30)
[2017-11-13] MEDS: PATIENT OWN MEDICATION IH SCH ×2 (17:37→17:52)
[2017-11-13] MEDS ORDERED: Advair Hfa 115/21 Common canister IH SCH (19:00)
[2017-11-13] MEDS ORDERED: SALMETEROL IH SCH (19:00)
[2017-11-13] MEDS ORDERED: FLUTICASONE IH SCH (19:00)
[2017-11-13] MEDS: Flomax 0.4 MG PO SCH (21:28)
[2017-11-13] MEDS: ZOCOR 20MG PO SCH (21:28)
[2017-11-13] MEDS: NEURONTIN 300 MG PO SCH (21:28)
[2017-11-13] MEDS: ELIQUIS 2.5 MG TABLET PO SCH (21:28)
[2017-11-13] MEDS: Coreg 6.25 MG PO SCH (21:28)
[2017-11-13] MEDS ORDERED: ACLIDINIUM BROMIDE 400 MCG IH SCH (22:00)
[2017-11-13] MEDS ORDERED: Coreg 6.25 MG PO SCH (22:00)
[2017-11-14 06:20] LABS: Creatinine 1 1.97 mg/dL (0.66-1.25)
[2017-11-14] MEDS: PATIENT OWN MEDICATION IH SCH ×4 (08:26→20:11)
[2017-11-14] MEDS: NEURONTIN 300 MG PO SCH ×3 (08:38→21:50)
[2017-11-14] MEDS: Sodium Chloride 0.9% 10 ML FLUSH Syringe IV SCH ×3 (08:39→21:53)
[2017-11-14] MEDS: Coreg 6.25 MG PO SCH ×2 (08:39→21:51)
[2017-11-14] MEDS: ELIQUIS 2.5 MG TABLET PO SCH ×2 (08:39→21:50)
[2017-11-14] MEDS: Novolin 70/30 SQ SCH ×2 (08:40→16:35)
[2017-11-14] MEDS: Protonix 40MG Tablet PO SCH (08:45)
[2017-11-14] MEDS: PLAVIX 75 MG Tablet PO SCH (08:46)
[2017-11-14] MEDS: LASIX 20 MG PO SCH (08:46)
[2017-11-14] MEDS: Pepcid 20 MG PO SCH (08:46)
[2017-11-14] MEDS: Imdur 60MG PO SCH (08:46)
[2017-11-14] MEDS: Altace 1.25 MG PO SCH (08:46)
--- NOTE | 2017-11-14 09:06 | PCM.NOTE ---
Date and Time: 11/14/17 0904 Subjective Assessment: patient with no new complaints today. leg feels about the same. pain is controlled Objective Exam General Appearance: no apparent distress, alert, obese Respiratory Exam: normal breath sounds, lungs clear, No respiratory distress Cardiovascular Exam: regular rate/rhythm, normal heart sounds Gastrointestinal/Abdomen Exam: soft, No tenderness, No mass Extremity Exam: pedal edema, other (cellulitis RLE. open area between first and second toe with drainage present) OBJECTIVE DATA Vital Signs: Vital Signs - 24 hr Temp Pulse Resp BP Pulse Ox 11/14/17 08:28 67 16 96 11/14/17 07:29 98.3 F 59 L 18 102/54 95 11/14/17 04:00 99.1 F 68 16 99/51 94 L 11/14/17 00:00 100.2 F 76 15 102/55 92 L 11/13/17 20:00 99.0 F 79 18 132/63 92 L 11/13/17 17:52 71 18 92 L 11/13/17 15:54 99.3 F 68 18 115/56 91 L 11/13/17 14:56 99.2 F 77 20 106/57 94 L 11/13/17 13:00 94 L 11/13/17 10:55 99.2 F 77 18 106/57 92 L Oxygen-Last 24 hours O2 Percentage 2 Liters = 28% Pain Assessment - Last Documented Pain Scale Used 0-10 Pain Scale Intake and Output: Intake & Output 11/11/17 11/12/17 11/13/17 11/14/17 11:59 11:59 11:59 11:59 Intake Total 1800 Output Total 200 Balance 1600 Weight 111.9 kg 111.98 kg Lab Results: Accuchecks Date 11/14/17 Date 11/13/17 Date 11/13/17 Time 08:53 Time 16:30 Accucheck Value: 130 Accucheck Value: 180 Accucheck Value: 136 Lab Results-Last 24 Hours 11/13/17 11/13/17 11/14/17 Range/Units 11:30 11:30 05:30 WBC 7.4 (4.0-10.5) K/mm3 RBC 4.64 (4.1-5.6) M/mm3 Hgb 13.3 (12.5-18.0) gm/dl Hct 41.3 L (42-50) % MCV 89.0 (78-100) fl MCH 28.7 (26-32) pg MCHC 32.2 (32-36) g/dl RDW 17.4 H (11.5-14.0) % Plt Count 245 (150-450) K/mm3 MPV 9.4 (6-9.5) fl Gran % 76.5 H (36.0-66.0) % Eos # (Auto) 0.26 (0-0.5) Absolute Lymphs (auto) 0.91 L (1.0-4.6) Absolute Monos (auto) 0.55 (0.0-1.3) Lymphocytes % 12.4 L (24.0-44.0) % Monocytes % 7.5 (0.0-12.0) % Eosinophils % 3.5 (0.00-5.0) % Basophils % 0.1 (0.0-0.4) % Absolute Granulocytes 5.62 (1.4-6.9) Basophils # 0.01 (0-0.4) Sodium 141 (137-145) mmol/L Potassium 4.2 (3.5-5.1) mmol/L Chloride 105 (98-107) mmol/L Carbon Dioxide 23 (22-30) mmol/L Anion Gap 17.5 H (5-15) MEQ/L BUN 29 H (9-20) mg/dL Creatinine 2.15 H 1.97 H (0.66-1.25) mg/dL Estimated GFR 32.7 36.1 ML/MIN Glucose 201 H (74-106) mg/dL Calcium 8.7 (8.4-10.2) mg/dL Total Bilirubin 0.70 (0.2-1.3) mg/dL AST 24 (17-59) U/L ALT 8 (0-50) U/L Alkaline Phosphatase 61 (38-126) U/L Serum Total Protein 7.3 (6.3-8.2) g/dL Albumin 3.6 (3.5-5.0) g/dL Assessment/Plan (1) Cellulitis of right lower extremity Current Visit: Yes Status: Acute Onset Date: ~11/13/17 Assessment & Plan: continue IV vanc Code(s): L03.115 - CELLULITIS OF RIGHT LOWER LIMB (2) Fever Current Visit: Yes Status: Acute Onset Date: ~11/13/17 Code(s): R50.9 - FEVER, UNSPECIFIED (3) Diabetic foot ulcer Current Visit: No Status: Acute Onset Date: ~10/23/17 Assessment & Plan: culture right foot drainage Code(s): E11.621 - TYPE 2 DIABETES MELLITUS WITH FOOT ULCER; L97.509 - NON- PRESSURE CHRONIC ULCER OTH PRT UNSP FOOT W UNSP SEVERITY (4) Diabetes mellitus type 2 in obese Current Visit: No Status: Chronic Onset Date: ~10/23/17 Code(s): E11.69 - TYPE 2 DIABETES MELLITUS WITH OTHER SPECIFIED COMPLICATION; E66.9 - OBESITY, UNSPECIFIED (5) Peripheral vascular disease Current Visit: No Status: Chronic Onset Date: ~10/23/17 Code(s): I73.9 - PERIPHERAL VASCULAR DISEASE, UNSPECIFIED
[2017-11-14] MEDS: VANCOCIN 1 GM VIAL*** 2 GM in Sodium Chloride 0.9% 500 ML 500 ML IV SCH (09:42)
[2017-11-14] MEDS ORDERED: NON-FORMULARY ITEM (Simvastatin 40 Mg [Zocor 40 Mg] 20 MG) PO SCH (10:00)
[2017-11-14] MEDS ORDERED: NON-FORMULARY ITEM (Omeprazole [Prilosec] 40 MG) PO SCH (10:00)
[2017-11-14] MEDS ORDERED: RAMIPRIL 2.5 MG PO SCH (10:00)
[2017-11-14] MEDS ORDERED: Imdur 30 MG PO SCH (10:00)
[2017-11-14] MEDS: Nicoderm CQ 21 MG TOP SCH (16:33)
[2017-11-14] MEDS: Pletal 100 MG PO SCH (16:34)
[2017-11-14] MEDS: ZOCOR 20MG PO SCH (21:50)
[2017-11-14] MEDS: Flomax 0.4 MG PO SCH (21:51)
[2017-11-15 05:53] LABS: BASOPHIL % 0.7 % (0.0-0.4); Basophil (Absolute #) 0.03 (0-0.4); Eosinophil % 7.7 % (0.00-5.0); Eosinophil (Absolute #) 0.33 (0-0.5); Granulocyte Absolute (ANC) 2.41 (1.4-6.9); Granulocytes % 56.3 % (36.0-66.0); Hematocrit 36.8 % (42-50); Hemoglobin 11.9 gm/dl (12.5-18.0); Lymphocyte (Absolute #) 0.98 (1.0-4.6); Lymphocytes % 22.9 % (24.0-44.0); Mean Cell Volume 88.2 fl (78-100); Mean Corpuscular Hemoglobin 28.5 pg (26-32); Mean Corpuscular Hgb Concent. 32.3 g/dl (32-36); Mean Platelet Volume 8.9 fl (6-9.5); Monocyte (Absolute #) 0.53 (0.0-1.3); Monocytes % 12.4 % (0.0-12.0); Platelet Count 225 K/mm3 (150-450); Red Blood Count 4.17 M/mm3 (4.1-5.6); Red Cell Distribution Width 16.9 % (11.5-14.0); White Blood Count 4.3 K/mm3 (4.0-10.5)
[2017-11-15] MEDS: Sodium Chloride 0.9% 10 ML FLUSH Syringe IV SCH ×2 (05:56→14:12)
[2017-11-15 06:12] LABS: ANION GAP 11.1 MEQ/L (5-15); Calcium 8.5 mg/dL (8.4-10.2); Creatinine 1 1.74 mg/dL (0.66-1.25); Potassium 4.2 mmol/L (3.5-5.1)
[2017-11-15] MEDS: PATIENT OWN MEDICATION IH SCH ×2 (07:20)
[2017-11-15] MEDS: Pletal 100 MG PO SCH (07:28)
[2017-11-15] MEDS: Novolin 70/30 SQ SCH (07:29)
[2017-11-15] MEDS: ELIQUIS 2.5 MG TABLET PO SCH (08:37)
[2017-11-15] MEDS: LASIX 20 MG PO SCH (08:37)
[2017-11-15] MEDS: PLAVIX 75 MG Tablet PO SCH (08:37)
[2017-11-15] MEDS: NEURONTIN 300 MG PO SCH (08:37)
[2017-11-15] MEDS: Imdur 60MG PO SCH (08:37)
[2017-11-15] MEDS: Pepcid 20 MG PO SCH (08:37)
[2017-11-15] MEDS: Coreg 6.25 MG PO SCH (08:38)
[2017-11-15] MEDS: Protonix 40MG Tablet PO SCH (08:38)
[2017-11-15] MEDS: Altace 1.25 MG PO SCH (08:38)
--- NOTE | 2017-11-15 08:48 | PCM.DCORD ---
- Discharge Discharge Date: 11/15/17 Prescriptions: Continue Nitroglycerin 0.4 mg Tablet [Nitrostat 0.4 MG Tablet] 0.4 mg SL UD Carvedilol 6.25 mg [Coreg 6.25 MG] 3.125 mg PO BID Simvastatin 40 mg [Zocor 40 mg] 20 mg PO DAILY Isosorbide Mononitrate 30 mg [Imdur 30 MG] 60 mg PO DAILY Ramipril 1.25 mg [Altace 1.25 MG] 2.5 mg PO DAILY Omeprazole [Prilosec] 40 mg PO DAILY Aclidinium [place] [Tudorza Pressair] 400 mcg IH BID Fluticasone/Salmeterol 115/21* [Advair Hfa 115/21 Mcg Inhaler] 2 puff IH BIDRT Insulin NPH/Reg 70/30 [Novolin 70/30] 40 unit SQ BID Tamsulosin HCl 0.4 mg [Flomax 0.4 MG] 1 cap PO HS Ranitidine HCl 150 mg PO DAILY Gabapentin 600 mg PO TID Furosemide 20 mg [Lasix 20 mg] 20 mg PO DAILY Fenofibrate Nanocrystallized [Fenofibrate] 145 mg PO DAILY Empagliflozin [Jardiance] 10 mg PO DAILY Clopidogrel Bisulfate [Clopidogrel] 75 mg PO DAILY Cilostazol 50 mg PO BID Apixaban [Eliquis 5 mg Tablet] 5 mg PO BID Sulfamethoxazole/Trimethoprim [Sulfamethoxazole-Tmp Ds Tablet] 1 tab PO Q12H Additional Instructions: Come to outpatient services daily for 5 days starting 11/16 for IV Vancomycin 2gm q24h antibiotic therapy. Outpatient services will call you to set up infusion time Follow up with: AYDEN BORJA MD [Primary Care Provider] - 1 Week
[2017-11-15] MEDS ORDERED: TROUGH DRUG LEVELS IJ ONE (09:30)
[2017-11-15] MEDS: VANCOCIN 1 GM VIAL*** 2 GM in Sodium Chloride 0.9% 500 ML 500 ML IV SCH (10:20)
[2017-11-15 11:27] VITALS: BP 110/53; PULSE 70; O2SAT 94
--- NOTE | 2017-11-19 09:37 | SSS ---
DISCHARGE DIAGNOSIS: CELLULITIS RIGHT LOWER EXTREMITY. HISTORY: The patient is a 67 year-old white male patient who was seen in the office and begun on Bactrim. He reports that the cellulitis was improving. However, he saw Dr. De La Cruz in the office after having an episode of chills and sweats overnight and he thought that he should be admitted for IV antibiotics and he was placed on IV Vancomycin. HOSPITAL COURSE: The patient on IV Vancomycin did show continued improvement in the swelling of the leg and was feeling much better. The pharmacy came up with the dosage that was going to be only given once every 24 hours and we thought the patient could go home and be followed up as an outpatient in the infusion center with treatment once daily with IV Vancomycin. We discussed this with the patient and he felt this was agreeable and wished to pursue with the plan. The patient was instructed to follow up with his surgeon on Saturday of next week and to see Dr. De La Cruz when he returns from vacation the week following that. He is to return to us or call the emergency room or myself if he has worsening of his condition in the interim.
== END 2017-11-15 14:35 | disposition home or self-care (01) | DRG 603 ==
LOC: MED SURG 10:43
PROVIDERS: ADMIT Family Medicine; ATTEND Family Medicine
DX: L03.115 Cellulitis of right lower limb (principal); I82.409 Acute embolism and thrombosis of unspecified deep veins of unspecified lower extremity; I25.10 Atherosclerotic heart disease of native coronary artery without angina pectoris; E11.69 Type 2 diabetes mellitus with other specified complication; J44.9 Chronic obstructive pulmonary disease, unspecified; R50.9 Fever, unspecified; G47.33 Obstructive sleep apnea (adult) (pediatric); Z79.01 Long term (current) use of anticoagulants; E66.9 Obesity, unspecified; I73.9 Peripheral vascular disease, unspecified; Z79.899 Other long term (current) drug therapy
CPT/HCPCS: 36415; 80048; 80053; 80202; 82565; 85025; 87040; 87070; 87077; 87186; 94640; 94760; J1815; J3370; A9270-GY

== ENCOUNTER 2024-02-13 11:26 | Emergency (ER) | payer MEDICARE, OTHER ==
[2024-02-13 11:29] VITALS: TEMP 97.7
[2024-02-13] MEDS ORDERED: Zofran 4 MG/2 ML VIAL ONE (11:46)
[2024-02-13] MEDS ORDERED: SUBLIMAZE 100 MCG/2 ML ONE (11:47)
[2024-02-13] MEDS: SUBLIMAZE 100 MCG/2 ML IV ONE (11:49)
[2024-02-13] MEDS: Zofran 4 MG/2 ML VIAL IV ONE (11:50)
--- NOTE | 2024-02-13 12:38 | XRAY ---
CLINICAL HISTORY: fall COMPARISON: None. TECHNIQUE: X-ray images of the right hip joint was obtained in anteroposterior (AP), and lateral projection including pelvis AP view. FINDINGS: Pelvic Bones: Pelvic bones, including the iliac wings, ischium, pubis, and sacrum, are normal and intact. No evidence of fractures, dislocations, or significant osseous lesions. Hip Joints: No evidence of hip dislocation or subluxation. Bilateral hip osteoarthritic changes are seen manifested by joint space narrowing, subchondral sclerosis and osteophyte formation. Acetabular structures appear normal and intact. No signs of acetabular fracture or dysplasia. Femoral heads are normal and centered within the acetabulum. No evidence of fractures, avascular necrosis, or significant deformities. Degenerative changes of both sacroiliac joints. Symphysis Pubis: Symphysis pubis is normal and intact. No evidence of separation or widening. Soft Tissues: Vascular calcifications seen. No soft tissue swelling. IMPRESSION: 1. No definite fractures or dislocation. 2. Hip and sacroiliac joints degenerative changes as described. DISCLAIMER:A subtle bone abnormality or fracture may not be readily apparent on x-rays, thus clinical correlation and further imaging including follow up CT, MRI, or follow up x-rays are advised as needed. Electronically Signed by: Esther Levine MD. (02/13/2024 12:34:48 EDT)
[2024-02-13 12:39] LABS: Absolute Neutrophil Ct (ANC) 5.73 x10^3/uL (1.78-5.38); BASOPHIL % 1.4 % (0.2-1.2); Basophil (Absolute #) 0.11 x10^3/uL (0.01-0.08); Eosinophil % 3.5 % (0.8-7.0); Eosinophil (Absolute #) 0.28 x10^3/uL (0.04-0.54); Hematocrit 45.8 % (40.1-51.0); IMMATURE GRAN # 0.06 x10^3u/L (0.001-0.031); IMMATURE GRAN % 0.7 % (0.001-0.429); Lymphocyte (Absolute #) 1.32 x10^3/uL (1.32-3.57); Lymphocytes % 16.4 % (21.8-53.1); Mean Cell Volume 100.4 fL (79.0-92.2); Mean Corpuscular Hemoglobin 30.7 pg (25.7-32.2); Mean Corpuscular Hgb Concent. 30.6 g/dL (32.3-36.5); Mean Platelet Volume 9.2 fL (9.4-12.4); Monocyte (Absolute #) 0.57 x10^3/uL (0.30-0.82); Monocytes % 7.1 % (5.3-12.2); Neutrophil % 70.9 % (34.0-67.9); Platelet Count 301 x10^3/uL (163-337); Red Blood Count 4.56 x10^6/uL (4.63-6.08); Red Cell Distribution Width 18.8 % (11.6-14.4); White Blood Count 8.1 x10^3/uL (4.23-9.07)
--- NOTE | 2024-02-13 12:54 | XRAY ---
CLINICAL HISTORY: sob COMPARISON: None. TECHNIQUE: An X-ray image of the chest is obtained in AP projection. FINDINGS: Pulmonary Parenchyma: Congested lungs ch with increased bronchovascular markings. No evidence of consolidation, or collapse. No pulmonary nodules are identified. No evidence of pleural effusion or pleural thickening. Heart and Mediastinum: Increased cardiothoracic ratio, however, heart size cannot be accurately assessed in this position. Congested hilar vessels noted. No mediastinal widening or masses. No hilar or mediastinal lymphadenopathy. Bony Thorax: The bony thorax appears intact without fractures or deformities. Soft Tissues: Soft tissues overlying the chest wall are unremarkable. IMPRESSION: 1. Congested hilar vessels and lung ch. Clinical and lab correlation is advised to rule out pulmonary infection. 2. Increased cardiothoracic ratio, however, heart size cannot be accurately assessed in this projection. 3. No consolidations or pleural effusion. 4. Clinical correlation and further evaluation are advised. Electronically Signed by: Esther Levine MD. (02/13/2024 12:50:21 EDT)
[2024-02-13 13:14] LABS: INFLUENZA A NEGATIVE (NEGATIVE); INFLUENZA B NEGATIVE (NEGATIVE); RESPIRATORY SYNCTIAL VIRUS NEGATIVE (NEGATIVE); SARS-CoV-2 Xpert Express NEGATIVE (NEGATIVE)
[2024-02-13 13:14] LABS: ALBUMIN 3.3 g/dL (3.5-5.0); ANION GAP 14.5 MEQ/L (5-15); BILIRUBIN,TOTAL 0.8 mg/dL (0.2-1.3); Creatinine 1 1.38 mg/dL (0.66-1.25); EST GLOMERULAR FILTRATION RATE 53.7 ML/MIN; MAGNESIUM 2.2 mg/dL (1.6-2.3); PROCALCITONIN 0.106 ng/mL (0.030-0.080); Potassium 5.3 mmol/L (3.5-5.1); Total Protein 6.9 g/dL (6.3-8.2)
[2024-02-13] MEDS ORDERED: NEXTERONE 360 MG/200 ML BAG 360 MG/200 ML PLAST..BAG IV ONE ×2 (13:14→18:50)
[2024-02-13] MEDS: NEXTERONE 360 MG/200 ML BAG 360 MG/200 ML PLAST..BAG IV SCH (13:16)
--- NOTE | 2024-02-13 14:17 | ERPHSYRPT ---
- History of Present Illness Time Seen by Provider: 02/13/24 11:31 Source: patient, EMS Exam Limitations: no limitations Patient Subjective Stated Complaint: PT HERE A FALL OFF OF SLIDE BOARD. AND WAS LOWERED TO GROUND BY HOME HEALTH CARE, PT CO PAIN TO RIGHT HIP WHICH IS CHRONIC FOR HER Triage Nursing Assessment: PT ARRIVED PER AMBULANCE, , ALERT, SKIN W/D/P. LEFT BELOW KNEE AMPUTATION, HAS DRESSING RIGHT FOOT FOR A OPEN WOOD, HAS IV TO LEFT F OREARM Physician History: 73-year-old male with multiple medical problems including coronary artery disease status post stenting, atrial fibrillation on Eliquis, diabetes mellitus with left below-knee amputations and multiple right toe amputations, chronic wound right foot and ankle, recent UTI with Klebsiella currently on IV antibiotics ertapenem/Cubicin is brought in the ER by EMS after he slid from the side board while moving from bed to the chair and slowly went down with the help of home health nurse on his right hip. Patient reports having right hip pain which is chronic and is not any worse than usual. Did not hit his head. No loss of consciousness. Able to move his right hip at his normal range of motion. No fever or chills reported. Although patient is in A-fib RVR on presentation. Has chronic respiratory failure from COPD/CHF and on 3 L oxygen with saturation in mid 90s. Has chronic cough which is not any worse than usual. Allergies/Adverse Reactions: Iodinated Contrast Media Allergy (Severe, Verified 11/25/20 10:07) Anaphylactic Reaction Iodine and Iodide Containing Produc Allergy (Severe, Verified 11/25/20 10:07) Rash ertapenem [From Invanz] Adverse Reaction (Intermediate, Verified 02/07/24 15:44) Diarrhea Home Medications: Carvedilol [Coreg ] 12.5 mg PO BID 01/29/15 [History] Insulin NPH/Reg 70/30 [Novolin 70/30] 40 unit SQ BID 01/29/15 [History] Isosorbide Mononitrate 30 mg [Imdur 30 MG] 60 mg PO DAILY 01/29/15 [History] Nitroglycerin 0.4 mg Tablet [Nitrostat 0.4 MG Tablet] 0.4 mg SL UD 01/29/15 [History] Omeprazole [Prilosec] 40 mg PO DAILY 01/29/15 [History] Apixaban [Eliquis 5 mg Tablet] 5 mg PO BID 10/23/17 [History] Clopidogrel Bisulfate [Clopidogrel] 75 mg PO DAILY 10/23/17 [History] Fenofibrate Nanocrystallized [Fenofibrate] 145 mg PO DAILY 10/23/17 [History] Gabapentin 600 mg PO TID 10/23/17 [History] Tamsulosin HCl 0.4 mg [Flomax 0.4 MG] 1 cap PO HS 10/23/17 [History] Atorvastatin Calcium [Lipitor] 20 mg PO DAILY 04/30/19 [History] Duloxetine HCl 30 mg [Cymbalta 30 MG Capsule] 30 mg PO DAILY 02/07/24 [History] Empagliflozin [Jardiance] 10 mg PO DAILY 02/07/24 [History] Ferrous Sulfate 325 mg [Feosol 325 mg] 325 mg PO DAILY 02/07/24 [History] Hx Tetanus, Diphtheria Vaccination/Date Given: No Hx Influenza Vaccination/Date Given: Yes Hx Pneumococcal Vaccination/Date Given: Yes Immunizations Up to Date: Yes Travel Risk - International Travel Have you traveled outside of the country in past 3 weeks: No - Emerging Infectious Disease Are you exhibiting symptoms associated with any current EIDs: No - Review of Systems Constitutional: Fatigue, Weakness Eyes: No Symptoms Ears, Nose, & Throat: No Symptoms Respiratory: Cough, Dyspnea Cardiac: Edema Abdominal/Gastrointestinal: No Symptoms Genitourinary Symptoms: No Symptoms Musculoskeletal: Arthralgias, Fall, Joint Pain Skin: Skin Lesions Neurological: No Symptoms Hematologic/Lymphatic: Easy Bleeding - Past Medical History Pertinent Past Medical History: Yes Neurological History: Peripheral Neuropathy ENT History: No Pertinent History Cardiac History: Deep Vein Thrombosis, Myocardial Infarction ([place]) Respiratory History: COPD Endocrine Medical History: Diabetes Type II Musculoskeletal History: No Pertinent History GI Medical History: GERD History: No Pertinent History Psycho-Social History: No Pertinent History Male Reproductive Disorders: No Pertinent History Other Medical History: 3 stents put in heart 09/24/16, had 1 stent in 2011. MIx2. C-PAP at hs Popliteal stent in right knee 03-16. - Past Surgical History Past Surgical History: Yes Neuro Surgical History: No Pertinent History Cardiac: Cardiac Catheterization, Cardiac Stent Respiratory: No Pertinent History Gastrointestinal: No Pertinent History Genitourinary: No Pertinent History Musculoskeletal: Amputation, Orthopedic Surgery Male Surgical History: No Pertinent History Other Surgical History: 2nd toe on rt foot removed, then removed half of foot. artery removed from left leg and placed in right leg. replaced artery in rt leg with cadaver artery. I&D of right leg. [place] 2011 and 2015, left below knee amputation 2019. popliteal stent in 03-16 - Social History Smoking Status: Former smoker How long have you smoked: 50 years Exposure to second hand smoke: No Drug Use: none Patient Lives Alone: No - Social Determinants of Health Will the patient participate in the screening: Unable to obtain - Nursing Vital Signs Nursing Vital Signs: Initial Vital Signs Temperature 97.7 F 02/13/24 11:27 Pulse Rate 130 H 02/13/24 11:27 Respiratory Rate 18 02/13/24 11:27 Blood Pressure 101/82 02/13/24 11:27 O2 Sat by Pulse Oximetry 94 L 02/13/24 11:27 Pain Scale Pain Intensity 4 - Physical Exam General Appearance: no apparent distress, alert Eye Exam: PERRL/EOMI Ears, Nose, Throat Exam: normal ENT inspection Neck Exam: normal inspection, full range of motion Respiratory Exam: diminished breath sounds, rhonchi, No accessory muscle use Cardiovascular Exam: tachycardia, irregular Gastrointestinal/Abdomen Exam: soft, normal bowel sounds, No tenderness Back Exam: decreased range of motion Extremity Exam: other (Below-knee amputation, multiple toe amputations on the right. Healing wound on the right lateral malleolus and dorsum of foot with good granulation tissue. Marked tenderness to palpation.) Neurologic Exam: alert, oriented x 3, cooperative, dog walker II-XII nml as tested SpO2 Interpretation: O2 applied SpO2: 85 O2 Delivery: Nasal Cannula (3 L) - Course EKG Interpreted by Me: RATE (137), A-fib, NORMAL AXIS, prolonged QT interval, Q- wave, Non-specific ST Changes Ordered Tests: Active Orders 24 hr Category Date Time Status Power Equipment Mechanics Instructor STAT Care 02/13/24 11:42 Completed EKG-ER Only STAT Care 02/13/24 11:41 Completed Oxygen-ED Only Nasal Cannula 3 lpm Care 02/13/24 11:41 Completed CHEST 1 VIEW (PORTABLE) Stat Exams 02/13/24 11:42 Completed HIP UNI (2V) INCL PEL IF DONE Stat Exams 02/13/24 11:42 Completed BLOOD CULTURE Stat Lab 02/13/24 12:37 Received CBC W DIFF Stat Lab 02/13/24 12:30 Completed CMP Stat Lab 02/13/24 12:27 Completed CULTURE,URINE Stat Lab 02/13/24 13:47 Received Lactic Acid Stat Lab 02/13/24 11:41 Completed MAGNESIUM Stat Lab 02/13/24 12:27 Completed NT PRO BNPII Stat Lab 02/13/24 12:27 Completed POCT GLUCOSE Stat Lab 02/13/24 16:43 Completed PROCALCITONIN Stat Lab 02/13/24 12:27 Completed TROPONIN Q4H Lab 02/13/24 12:27 Completed TROPONIN Q4H Lab 02/13/24 15:15 Completed UA W/RFX UR CULTURE Stat Lab 02/13/24 13:47 Completed Transfer Order Routine Transfer 02/13/24 Ordered Medication Summary Discontinued Medications Generic Name Dose Route Start Last Admin Trade Name Freq PRN Reason Stop Dose Admin Fentanyl Citrate 50 mcg 02/13/24 11:43 02/13/24 11:49 Fentanyl Citrate 100 Mcg/2 Ml* Vial IV 02/13/24 11:44 50 mcg STAT ONE Administration Fentanyl Citrate Confirm 02/13/24 11:47 Fentanyl Citrate 100 Mcg/2 Ml* Vial Administered 02/13/24 11:48 Dose 100 mcg .ROUTE .STK-MED ONE Amiodarone HCl/Dextrose 360 mg in 200 mls @ 33 mls/hr 02/13/24 12:45 02/13/24 18:51 Nexterone 360 Mg/200 Ml Bag IV 03/14/24 12:44 33 mls/hr .Q6H4M GAGAN 33 mls/hr Administration Protocol Amiodarone HCl/Dextrose Confirm 02/13/24 13:14 Nexterone 360 Mg/200 Ml Bag Administered 02/13/24 13:15 Dose 360 mg in 200 mls @ ud IV .STK-MED ONE Ertapenem 1 g/ Sodium Chloride 100 mls @ 200 mls/hr 02/13/24 15:47 02/13/24 16:00 IV 02/13/24 16:16 200 mls/hr STAT STA Administration Daptomycin 700 mg/ Sodium 14 mls @ 7 mls/min 02/13/24 16:30 02/13/24 16:35 Chloride IV 02/13/24 16:31 7 mls/min 1630 GAGAN Administration Amiodarone HCl/Dextrose Confirm 02/13/24 18:50 Nexterone 360 Mg/200 Ml Bag Administered 02/13/24 18:51 Dose 360 mg in 200 mls @ ud IV .STK-MED ONE Ondansetron HCl 4 mg 02/13/24 11:43 02/13/24 11:50 Ondansetron Hcl 4 Mg/2 Ml Vial IV 02/13/24 11:44 4 mg STAT ONE Administration Ondansetron HCl Confirm 02/13/24 11:46 Ondansetron Hcl 4 Mg/2 Ml Vial Administered 02/13/24 11:47 Dose 4 mg .ROUTE .STK-MED ONE Lab/Rad Data: Laboratory Result Diagrams 02/13/24 12:30 02/13/24 12:27 Laboratory Results 02/13/24 02/13/24 02/13/24 Range/Units 16:43 15:15 13:47 WBC (4.23-9.07) x10^3/uL RBC (4.63-6.08) x10^6/uL Hgb (13.7-17.5) g/dL Hct (40.1-51.0) % MCV (79.0-92.2) fL MCH (25.7-32.2) pg MCHC (32.3-36.5) g/dL RDW (11.6-14.4) % Plt Count (163-337) x10^3/uL MPV (9.4-12.4) fL Gran % (34.0-67.9) % Immature Gran % (Auto) (0.001-0.429) % Nucleat RBC Rel Count (0.00-0.2) % Eos # (Auto) (0.04-0.54) x10^3/uL Immature Gran # (Auto) (0.001-0.031) x10^3u/L Absolute Lymphs (auto) (1.32-3.57) x10^3/uL Absolute Monos (auto) (0.30-0.82) x10^3/uL Absolute Nucleated RBC (0.00-0.012) x10^3u/L Lymphocytes % (21.8-53.1) % Monocytes % (5.3-12.2) % Eosinophils % (0.8-7.0) % Basophils % (0.2-1.2) % Absolute Granulocytes (1.78-5.38) x10^3/uL Basophils # (0.01-0.08) x10^3/uL Sodium (135-145) mmol/L Potassium (3.5-5.1) mmol/L Chloride (98-107) mmol/L Carbon Dioxide (22-30) mmol/L Anion Gap (5-15) MEQ/L BUN (9-20) mg/dL Creatinine (0.66-1.25) mg/dL Estimated GFR ML/MIN Glucose (74-106) mg/dL POC Glucometer 75 (74 to 106) mg/dL Lactic Acid (0.4-2.0) Calcium (8.4-10.2) mg/dL Magnesium (1.6-2.3) mg/dL Total Bilirubin (0.2-1.3) mg/dL AST (17-59) U/L ALT (0-50) U/L Alkaline Phosphatase (38-126) U/L Troponin I < 0.012 (0.000-0.033) ng/mL NT-Pro-B Natriuret Pep (<300) pg/mL Serum Total Protein (6.3-8.2) g/dL Albumin (3.5-5.0) g/dL Procalcitonin (0.030-0.080) ng/mL Urine Color Yellow (Yellow) Urine Appearance Turbid A (Clear) Urine pH 5.5 (4.6-8.0) Ur Specific Hayes 1.015 (1.005-1.030) Urine Protein 100 A (Negative) Urine Glucose (UA) Negative (Negative) mg/dL Urine Ketones Negative (Negative) Urine Blood Moderate A (Negative) Urine Nitrite Negative (Negative) Urine Bilirubin Negative (Negative) Urine Urobilinogen 0.2 (0.2) mg/dL Ur Leukocyte Esterase Large A (Negative) U Hyaline Cast (Auto) NONE SEEN (0-2) /LPF Urine Microscopic RBC 6-10 A (0-5) /HPF Urine Microscopic WBC >100 A (0-5) /HPF Ur Epithelial Cells Few (None Seen) /HPF Urine Bacteria Moderate A (None Seen) /HPF Urine Yeast (Budding) Moderate A (None Seen) /HPF Urine Culture Reflexed YES (NO) Influenza Type A Ag (NEGATIVE) Influenza Type B Ag (NEGATIVE) RSV (PCR) (NEGATIVE) SARS-CoV-2 (PCR) (NEGATIVE) 02/13/24 02/13/24 02/13/24 Range/Units 12:37 12:30 12:27 WBC 8.1 (4.23-9.07) x10^3/uL RBC 4.56 L (4.63-6.08) x10^6/uL Hgb 14.0 (13.7-17.5) g/dL Hct 45.8 (40.1-51.0) % MCV 100.4 H (79.0-92.2) fL MCH 30.7 (25.7-32.2) pg MCHC 30.6 L (32.3-36.5) g/dL RDW 18.8 H (11.6-14.4) % Plt Count 301 (163-337) x10^3/uL MPV 9.2 L (9.4-12.4) fL Gran % 70.9 H (34.0-67.9) % Immature Gran % (Auto) 0.7 H (0.001-0.429) % Nucleat RBC Rel Count 0.0 (0.00-0.2) % Eos # (Auto) 0.28 (0.04-0.54) x10^3/uL Immature Gran # (Auto) 0.06 H (0.001-0.031) x10^3u/L Absolute Lymphs (auto) 1.32 (1.32-3.57) x10^3/uL Absolute Monos (auto) 0.57 (0.30-0.82) x10^3/uL Absolute Nucleated RBC 0.00 (0.00-0.012) x10^3u/L Lymphocytes % 16.4 L (21.8-53.1) % Monocytes % 7.1 (5.3-12.2) % Eosinophils % 3.5 (0.8-7.0) % Basophils % 1.4 H (0.2-1.2) % Absolute Granulocytes 5.73 H (1.78-5.38) x10^3/uL Basophils # 0.11 H (0.01-0.08) x10^3/uL Sodium (135-145) mmol/L Potassium (3.5-5.1) mmol/L Chloride (98-107) mmol/L Carbon Dioxide (22-30) mmol/L Anion Gap (5-15) MEQ/L BUN (9-20) mg/dL Creatinine (0.66-1.25) mg/dL Estimated GFR ML/MIN Glucose (74-106) mg/dL POC Glucometer (74 to 106) mg/dL Lactic Acid (0.4-2.0) Calcium (8.4-10.2) mg/dL Magnesium (1.6-2.3) mg/dL Total Bilirubin (0.2-1.3) mg/dL AST (17-59) U/L ALT (0-50) U/L Alkaline Phosphatase (38-126) U/L Troponin I < 0.012 (0.000-0.033) ng/mL NT-Pro-B Natriuret Pep (<300) pg/mL Serum Total Protein (6.3-8.2) g/dL Albumin (3.5-5.0) g/dL Procalcitonin (0.030-0.080) ng/mL Urine Color (Yellow) Urine Appearance (Clear) Urine pH (4.6-8.0) Ur Specific Hayes (1.005-1.030) Urine Protein (Negative) Urine Glucose (UA) (Negative) mg/dL Urine Ketones (Negative) Urine Blood (Negative) Urine Nitrite (Negative) Urine Bilirubin (Negative) Urine Urobilinogen (0.2) mg/dL Ur Leukocyte Esterase (Negative) U Hyaline Cast (Auto) (0-2) /LPF Urine Microscopic RBC (0-5) /HPF Urine Microscopic WBC (0-5) /HPF Ur Epithelial Cells (None Seen) /HPF Urine Bacteria (None Seen) /HPF Urine Yeast (Budding) (None Seen) /HPF Urine Culture Reflexed (NO) Influenza Type A Ag NEGATIVE (NEGATIVE) Influenza Type B Ag NEGATIVE (NEGATIVE) RSV (PCR) NEGATIVE (NEGATIVE) SARS-CoV-2 (PCR) NEGATIVE (NEGATIVE) 02/13/24 02/13/24 Range/Units 12:27 11:41 WBC (4.23-9.07) x10^3/uL RBC (4.63-6.08) x10^6/uL Hgb (13.7-17.5) g/dL Hct (40.1-51.0) % MCV (79.0-92.2) fL MCH (25.7-32.2) pg MCHC (32.3-36.5) g/dL RDW (11.6-14.4) % Plt Count (163-337) x10^3/uL MPV (9.4-12.4) fL Gran % (34.0-67.9) % Immature Gran % (Auto) (0.001-0.429) % Nucleat RBC Rel Count (0.00-0.2) % Eos # (Auto) (0.04-0.54) x10^3/uL Immature Gran # (Auto) (0.001-0.031) x10^3u/L Absolute Lymphs (auto) (1.32-3.57) x10^3/uL Absolute Monos (auto) (0.30-0.82) x10^3/uL Absolute Nucleated RBC (0.00-0.012) x10^3u/L Lymphocytes % (21.8-53.1) % Monocytes % (5.3-12.2) % Eosinophils % (0.8-7.0) % Basophils % (0.2-1.2) % Absolute Granulocytes (1.78-5.38) x10^3/uL Basophils # (0.01-0.08) x10^3/uL Sodium 144 (135-145) mmol/L Potassium 5.3 H (3.5-5.1) mmol/L Chloride 112 H (98-107) mmol/L Carbon Dioxide 23 (22-30) mmol/L Anion Gap 14.5 (5-15) MEQ/L BUN 42 H (9-20) mg/dL Creatinine 1.38 H (0.66-1.25) mg/dL Estimated GFR 53.7 ML/MIN Glucose 79 (74-106) mg/dL POC Glucometer (74 to 106) mg/dL Lactic Acid 1.2 (0.4-2.0) Calcium 9.0 (8.4-10.2) mg/dL Magnesium 2.2 (1.6-2.3) mg/dL Total Bilirubin 0.80 (0.2-1.3) mg/dL AST 34 (17-59) U/L ALT 14 (0-50) U/L Alkaline Phosphatase 50 (38-126) U/L Troponin I (0.000-0.033) ng/mL NT-Pro-B Natriuret Pep 9430 (<300) pg/mL Serum Total Protein 6.9 (6.3-8.2) g/dL Albumin 3.3 L (3.5-5.0) g/dL Procalcitonin 0.106 H (0.030-0.080) ng/mL Urine Color (Yellow) Urine Appearance (Clear) Urine pH (4.6-8.0) Ur Specific Hayes (1.005-1.030) Urine Protein (Negative) Urine Glucose (UA) (Negative) mg/dL Urine Ketones (Negative) Urine Blood (Negative) Urine Nitrite (Negative) Urine Bilirubin (Negative) Urine Urobilinogen (0.2) mg/dL Ur Leukocyte Esterase (Negative) U Hyaline Cast (Auto) (0-2) /LPF Urine Microscopic RBC (0-5) /HPF Urine Microscopic WBC (0-5) /HPF Ur Epithelial Cells (None Seen) /HPF Urine Bacteria (None Seen) /HPF Urine Yeast (Budding) (None Seen) /HPF Urine Culture Reflexed (NO) Influenza Type A Ag (NEGATIVE) Influenza Type B Ag (NEGATIVE) RSV (PCR) (NEGATIVE) SARS-CoV-2 (PCR) (NEGATIVE) - Progress Progress: improved Progress Note: 02/13/24 14:17 73-year-old male with multiple medical problems including diabetes mellitus with left below-knee amputation, multiple right toe amputation, wound on the left foot and ankle on antibiotics, recent UTI with Klebsiella on ertapenem, coronary artery disease with stenting, atrial fibrillation on Eliquis, COPD/CHF with chronic respiratory failure on 3 L oxygen is evaluated in the ER after he slid off while moving from the bed and slowly went down on his right hip. Patient has no more pain than usual right hip arthritic pain. He is given fentanyl. P atient was in A-fib RVR on presentation with heart rate in 130s. Seems to be a little fluid overloaded, he is started on amiodarone . Patient workup showed normal white count, chemistries with creatinine of 1.3 which is close to its baseline and mildly elevated potassium of 5.3 but no acute EKG changes. Initial troponins negative. Has elevated procalcitonin of 0.1. Chest x-ray is negative for acute focal consolidation but does have some effusion. Mild cardiomegaly. X-ray of right hip is negative for fracture dislocation. Patient is already on antibiotics based on sensitivities for UTI and possible osteomyelitis of right foot and ankle. I believe patient needs to be admitted for better control of A-fib RVR and will continue with antibiotics. 02/13/24 15:13 I have discussed with Dr. Tripathi, reviewed history, workup, recommended transfer to facility with [place] [facility]. I have shared the results of workup with patient and family and explained the reason for transfer and they agreed to go to [facility]. I have spoken with [facility] transfer client services manager and reviewed workup and current management and patient is auto excepted on behalf of Dr. Enciso at [facility]. 02/13/24 16:58 Family later on decided not to go to [facility] because of previous bad experience. I have called [facility], discussed with Dr. Trevor meyer, reviewed history, workup and agreed with transfer. Although patient is accepted for transfer but no beds are available in the ICU since he is on amnio drip. Son has made me call Dr. Segundo and I have spoken with him and he has called [facility] to expedite the availability of bed but no availability at present and may be in next 12 to 24 hours. I have given the option of staying here at [place] until bed becomes available and I have spoken with Dr. Tripathi and she agreed to keep patient in here and would be transferred once bed is available. Discussed with DrSharron: Other (Dr. Tripathi hospitalist) Will see patient in: hospital (observation) Counseled pt/family regarding: lab results, diagnosis, rad results Medical Desision Making - Independent Historian Additional History obtained from: [place]/EMT - Discussion of managment Care discussed with:: specialist (Dr. Virgilio CASTILLO [facility]/Dr. Trevor meyer [facility]/Dr. Bhumi meyer [facility]) Reviewed:: Test results Agreed on:: Treatment plan, place in obs Will see patient: in hospital - Diagnostic Testing Diagnostic test were ordered, analyzed, and reviewed by me: Yes Radiological Interpretation: Reviewed by me, Teleradiologist Report - Risk of complications The pt has a mod risk of morbidity or mortality based on: Need for prescription drug management The pt has a high risk of morbidity or mortality based on: Decision regarding hospitilization or escalation of hosp level of care - Departure Departure Disposition: Observation Clinical Impression: Atrial fibrillation with rapid ventricular response, Diabetic foot ulcer, UTI (urinary tract infection) Condition: Stable Critical Care Time: No Referrals: ASSOCIATION,VISITING NURSING [Primary Care Provider] - Follow up/PCP as directed
[2024-02-13 14:41] LABS: Appearance Turbid (Clear); Bacteria Moderate /HPF (None Seen); Bilirubin Negative (Negative); Blood Moderate (Negative); Glucose, Urine Negative (Negative); Hyaline Casts NONE SEEN /LPF (0-2); Ketones Negative (Negative); Leukocyte Esterase Large (Negative); Nitrite Negative (Negative); Ph 5.5 (4.6-8.0); Protein,Urine Dip 100 (Negative); Specific Gravity 1.015 (1.005-1.030); Urobilinogen 0.2 mg/dL (0.2); WBC >100 /HPF (0-5)
[2024-02-13 14:42] LABS: ADD URINE CULTURE? YES (NO); Budding Yeast Moderate /HPF (None Seen); Epithelial Cells Few /HPF (None Seen)
[2024-02-13] MEDS: Invanz *** 1 G in Sodium Chloride 100ML MINI-BAG PLUS 100 ML IV STA (16:00)
[2024-02-13] MEDS: DAPTOmycin 700 MG in Sodium Chloride Flush 30 ML*** 14 ML IV SCH (16:35)
--- NOTE | 2024-02-13 17:15 | PCM.HP ---
History of Present Illness - Chief Complaint Chief Complaint: AFIB RVR Date: 02/13/24 History of Present Illness: is a 73 year old male. Medications & Allergies Home Medications: Home Medication List Carvedilol [Coreg ] 12.5 mg PO BID 01/29/15 [History Confirmed 02/07/24] Insulin NPH/Reg 70/30 [Novolin 70/30] 40 unit SQ BID 01/29/15 [History Confirmed 02/07/24] Isosorbide Mononitrate 30 mg [Imdur 30 MG] 60 mg PO DAILY 01/29/15 [History Confirmed 02/07/24] Nitroglycerin 0.4 mg Tablet [Nitrostat 0.4 MG Tablet] 0.4 mg SL UD 01/29/15 [History Confirmed 02/07/24] Omeprazole [Prilosec] 40 mg PO DAILY 01/29/15 [History Confirmed 02/07/24] Apixaban [Eliquis 5 mg Tablet] 5 mg PO BID 10/23/17 [History Confirmed 02/07/24] Clopidogrel Bisulfate [Clopidogrel] 75 mg PO DAILY 10/23/17 [History Confirmed 02/07/24] Fenofibrate Nanocrystallized [Fenofibrate] 145 mg PO DAILY 10/23/17 [History Confirmed 02/07/24] Gabapentin 600 mg PO TID 10/23/17 [History Confirmed 02/07/24] Tamsulosin HCl 0.4 mg [Flomax 0.4 MG] 1 cap PO HS 10/23/17 [History Confirmed 02/07/24] Atorvastatin Calcium [Lipitor] 20 mg PO DAILY 04/30/19 [History Confirmed 02/07/24] Duloxetine HCl 30 mg [Cymbalta 30 MG Capsule] 30 mg PO DAILY 02/07/24 [History Confirmed 02/07/24] Empagliflozin [Jardiance] 10 mg PO DAILY 02/07/24 [History Confirmed 02/07/24] Ferrous Sulfate 325 mg [Feosol 325 mg] 325 mg PO DAILY 02/07/24 [History Confirmed 02/07/24] Allergies/Adverse Reactions: Allergies Allergy/AdvReac Type Severity Reaction Status Date / Time Iodinated Contrast Media Allergy Severe Anaphylactic Verified 11/25/20 10:07 Reaction Iodine and Iodide Containing Allergy Severe Rash Verified 11/25/20 10:07 Produc ertapenem [From Invanz] AdvReac Intermediate Diarrhea Verified 02/07/24 15:44 - Past Medical History Past Medical History: Yes Neurological History: Peripheral Neuropathy ENT History: No Pertinent History Cardiac History: Deep Vein Thrombosis, Myocardial Infarction (ME) Respiratory History: COPD Endocrine Medical History: Diabetes Type II Musculoskelatal History: No Pertinent History GI Medical History: GERD History: No Pertinent History Pyscho-Social History: No Pertinent History Male Reproductive Disorders: No Pertinent History Comment: 3 stents put in heart 09/24/16, had 1 stent in 2011. MIx2. C-PAP at hs Popliteal stent in right knee 03-16. - Past Surgical History Past Surgical History: Yes Neuro Surgical History: No Pertinent History Cardiac History: Cardiac Catheterization, Cardiac Stent Respiratory Surgery: No Pertinent History GI Surgical History: No Pertinent History Genitourinary Surgical Hx: No Pertinent History Musculskeletal Surgical Hx: Amputation, Orthopedic Surgery Male Surgical History: No Pertinent History Other Surgical History: 2nd toe on rt foot removed, then removed half of foot. artery removed from left leg and placed in right leg. replaced artery in rt leg with cadaver artery. I&D of right leg. ME 2011 and 2015, left below knee amputation 2019. popliteal stent in 03-16 - Social History Smoking Status: Former smoker How long have you smoked: 50 years Exposure to second hand smoke: No Alcohol: None Drug Use: none - Social Determinants of Health Will the patient participate in the screening: Unable to obtain - Physical Exam Vital Signs: Vital Signs - 24 hr Temp Pulse Resp BP BP Pulse Ox 02/13/24 17:02 85 L 02/13/24 16:30 121 H 14 128/91 94 L 02/13/24 16:15 126 H 21 116/95 02/13/24 16:00 126 H 23 112/94 02/13/24 15:45 117 H 19 111/91 02/13/24 15:31 113 H 20 120/92 91 L 02/13/24 15:15 124 H 21 99/70 91 L 02/13/24 15:00 109 H 22 97/76 93 L 02/13/24 14:45 124 H 18 90/75 95 02/13/24 14:30 121 H 21 98/72 94 L 02/13/24 14:15 115 H 18 102/69 93 L 02/13/24 14:01 117 H 19 103/73 91 L 02/13/24 13:45 116 H 18 102/74 94 L 02/13/24 13:30 125 H 17 110/90 02/13/24 13:16 125 H 19 121/90 02/13/24 13:05 118 H 26 H 152/112 88 L 02/13/24 13:03 114 H 17 02/13/24 12:52 125 H 22 101/72 91 L 02/13/24 12:45 131 H 19 97/74 90 L 02/13/24 12:42 129 H 19 94/71 02/13/24 12:30 130 H 16 86/68 02/13/24 12:29 125 H 15 82/55 02/13/24 12:27 124 H 19 86/49 02/13/24 12:20 127 H 17 02/13/24 12:13 121 H 22 02/13/24 11:30 124 H 101/80 02/13/24 11:27 97.7 F 130 H 18 101/82 94 L Results - Labs Lab/Micro Results: Lab Results-Last 24 Hours 02/13/24 02/13/24 02/13/24 Range/Units 11:41 12:27 12:27 WBC (4.23-9.07) x10^3/uL RBC (4.63-6.08) x10^6/uL Hgb (13.7-17.5) g/dL Hct (40.1-51.0) % MCV (79.0-92.2) fL MCH (25.7-32.2) pg MCHC (32.3-36.5) g/dL RDW (11.6-14.4) % Plt Count (163-337) x10^3/uL MPV (9.4-12.4) fL Gran % (34.0-67.9) % Immature Gran % (Auto) (0.001-0.429) % Nucleat RBC Rel Count (0.00-0.2) % Eos # (Auto) (0.04-0.54) x10^3/uL Immature Gran # (Auto) (0.001-0.031) x10^3u/L Absolute Lymphs (auto) (1.32-3.57) x10^3/uL Absolute Monos (auto) (0.30-0.82) x10^3/uL Absolute Nucleated RBC (0.00-0.012) x10^3u/L Lymphocytes % (21.8-53.1) % Monocytes % (5.3-12.2) % Eosinophils % (0.8-7.0) % Basophils % (0.2-1.2) % Absolute Granulocytes (1.78-5.38) x10^3/uL Basophils # (0.01-0.08) x10^3/uL Sodium 144 (135-145) mmol/L Potassium 5.3 H (3.5-5.1) mmol/L Chloride 112 H (98-107) mmol/L Carbon Dioxide 23 (22-30) mmol/L Anion Gap 14.5 (5-15) MEQ/L BUN 42 H (9-20) mg/dL Creatinine 1.38 H (0.66-1.25) mg/dL Estimated GFR 53.7 ML/MIN Glucose 79 (74-106) mg/dL POC Glucometer (74 to 106) mg/dL Lactic Acid 1.2 (0.4-2.0) Calcium 9.0 (8.4-10.2) mg/dL Magnesium 2.2 (1.6-2.3) mg/dL Total Bilirubin 0.80 (0.2-1.3) mg/dL AST 34 (17-59) U/L ALT 14 (0-50) U/L Alkaline Phosphatase 50 (38-126) U/L Troponin I < 0.012 (0.000-0.033) ng/mL NT-Pro-B Natriuret Pep 9430 (<300) pg/mL Serum Total Protein 6.9 (6.3-8.2) g/dL Albumin 3.3 L (3.5-5.0) g/dL Procalcitonin 0.106 H (0.030-0.080) ng/mL Urine Color (Yellow) Urine Appearance (Clear) Urine pH (4.6-8.0) Ur Specific Meigs (1.005-1.030) Urine Protein (Negative) Urine Glucose (UA) (Negative) mg/dL Urine Ketones (Negative) Urine Blood (Negative) Urine Nitrite (Negative) Urine Bilirubin (Negative) Urine Urobilinogen (0.2) mg/dL Ur Leukocyte Esterase (Negative) U Hyaline Cast (Auto) (0-2) /LPF Urine Microscopic RBC (0-5) /HPF Urine Microscopic WBC (0-5) /HPF Ur Epithelial Cells (None Seen) /HPF Urine Bacteria (None Seen) /HPF Urine Yeast (Budding) (None Seen) /HPF Urine Culture Reflexed (NO) Influenza Type A Ag (NEGATIVE) Influenza Type B Ag (NEGATIVE) RSV (PCR) (NEGATIVE) SARS-CoV-2 (PCR) (NEGATIVE) 02/13/24 02/13/24 02/13/24 Range/Units 12:30 12:37 13:47 WBC 8.1 (4.23-9.07) x10^3/uL RBC 4.56 L (4.63-6.08) x10^6/uL Hgb 14.0 (13.7-17.5) g/dL Hct 45.8 (40.1-51.0) % MCV 100.4 H (79.0-92.2) fL MCH 30.7 (25.7-32.2) pg MCHC 30.6 L (32.3-36.5) g/dL RDW 18.8 H (11.6-14.4) % Plt Count 301 (163-337) x10^3/uL MPV 9.2 L (9.4-12.4) fL Gran % 70.9 H (34.0-67.9) % Immature Gran % (Auto) 0.7 H (0.001-0.429) % Nucleat RBC Rel Count 0.0 (0.00-0.2) % Eos # (Auto) 0.28 (0.04-0.54) x10^3/uL Immature Gran # (Auto) 0.06 H (0.001-0.031) x10^3u/L Absolute Lymphs (auto) 1.32 (1.32-3.57) x10^3/uL Absolute Monos (auto) 0.57 (0.30-0.82) x10^3/uL Absolute Nucleated RBC 0.00 (0.00-0.012) x10^3u/L Lymphocytes % 16.4 L (21.8-53.1) % Monocytes % 7.1 (5.3-12.2) % Eosinophils % 3.5 (0.8-7.0) % Basophils % 1.4 H (0.2-1.2) % Absolute Granulocytes 5.73 H (1.78-5.38) x10^3/uL Basophils # 0.11 H (0.01-0.08) x10^3/uL Sodium (135-145) mmol/L Potassium (3.5-5.1) mmol/L Chloride (98-107) mmol/L Carbon Dioxide (22-30) mmol/L Anion Gap (5-15) MEQ/L BUN (9-20) mg/dL Creatinine (0.66-1.25) mg/dL Estimated GFR ML/MIN Glucose (74-106) mg/dL POC Glucometer (74 to 106) mg/dL Lactic Acid (0.4-2.0) Calcium (8.4-10.2) mg/dL Magnesium (1.6-2.3) mg/dL Total Bilirubin (0.2-1.3) mg/dL AST (17-59) U/L ALT (0-50) U/L Alkaline Phosphatase (38-126) U/L Troponin I (0.000-0.033) ng/mL NT-Pro-B Natriuret Pep (<300) pg/mL Serum Total Protein (6.3-8.2) g/dL Albumin (3.5-5.0) g/dL Procalcitonin (0.030-0.080) ng/mL Urine Color Yellow (Yellow) Urine Appearance Turbid A (Clear) Urine pH 5.5 (4.6-8.0) Ur Specific Meigs 1.015 (1.005-1.030) Urine Protein 100 A (Negative) Urine Glucose (UA) Negative (Negative) mg/dL Urine Ketones Negative (Negative) Urine Blood Moderate A (Negative) Urine Nitrite Negative (Negative) Urine Bilirubin Negative (Negative) Urine Urobilinogen 0.2 (0.2) mg/dL Ur Leukocyte Esterase Large A (Negative) U Hyaline Cast (Auto) NONE SEEN (0-2) /LPF Urine Microscopic RBC 6-10 A (0-5) /HPF Urine Microscopic WBC >100 A (0-5) /HPF Ur Epithelial Cells Few (None Seen) /HPF Urine Bacteria Moderate A (None Seen) /HPF Urine Yeast (Budding) Moderate A (None Seen) /HPF Urine Culture Reflexed YES (NO) Influenza Type A Ag NEGATIVE (NEGATIVE) Influenza Type B Ag NEGATIVE (NEGATIVE) RSV (PCR) NEGATIVE (NEGATIVE) SARS-CoV-2 (PCR) NEGATIVE (NEGATIVE) 02/13/24 02/13/24 Range/Units 15:15 16:43 WBC (4.23-9.07) x10^3/uL RBC (4.63-6.08) x10^6/uL Hgb (13.7-17.5) g/dL Hct (40.1-51.0) % MCV (79.0-92.2) fL MCH (25.7-32.2) pg MCHC (32.3-36.5) g/dL RDW (11.6-14.4) % Plt Count (163-337) x10^3/uL MPV (9.4-12.4) fL Gran % (34.0-67.9) % Immature Gran % (Auto) (0.001-0.429) % Nucleat RBC Rel Count (0.00-0.2) % Eos # (Auto) (0.04-0.54) x10^3/uL Immature Gran # (Auto) (0.001-0.031) x10^3u/L Absolute Lymphs (auto) (1.32-3.57) x10^3/uL Absolute Monos (auto) (0.30-0.82) x10^3/uL Absolute Nucleated RBC (0.00-0.012) x10^3u/L Lymphocytes % (21.8-53.1) % Monocytes % (5.3-12.2) % Eosinophils % (0.8-7.0) % Basophils % (0.2-1.2) % Absolute Granulocytes (1.78-5.38) x10^3/uL Basophils # (0.01-0.08) x10^3/uL Sodium (135-145) mmol/L Potassium (3.5-5.1) mmol/L Chloride (98-107) mmol/L Carbon Dioxide (22-30) mmol/L Anion Gap (5-15) MEQ/L BUN (9-20) mg/dL Creatinine (0.66-1.25) mg/dL Estimated GFR ML/MIN Glucose (74-106) mg/dL POC Glucometer 75 (74 to 106) mg/dL Lactic Acid (0.4-2.0) Calcium (8.4-10.2) mg/dL Magnesium (1.6-2.3) mg/dL Total Bilirubin (0.2-1.3) mg/dL AST (17-59) U/L ALT (0-50) U/L Alkaline Phosphatase (38-126) U/L Troponin I < 0.012 (0.000-0.033) ng/mL NT-Pro-B Natriuret Pep (<300) pg/mL Serum Total Protein (6.3-8.2) g/dL Albumin (3.5-5.0) g/dL Procalcitonin (0.030-0.080) ng/mL Urine Color (Yellow) Urine Appearance (Clear) Urine pH (4.6-8.0) Ur Specific Meigs (1.005-1.030) Urine Protein (Negative) Urine Glucose (UA) (Negative) mg/dL Urine Ketones (Negative) Urine Blood (Negative) Urine Nitrite (Negative) Urine Bilirubin (Negative) Urine Urobilinogen (0.2) mg/dL Ur Leukocyte Esterase (Negative) U Hyaline Cast (Auto) (0-2) /LPF Urine Microscopic RBC (0-5) /HPF Urine Microscopic WBC (0-5) /HPF Ur Epithelial Cells (None Seen) /HPF Urine Bacteria (None Seen) /HPF Urine Yeast (Budding) (None Seen) /HPF Urine Culture Reflexed (NO) Influenza Type A Ag (NEGATIVE) Influenza Type B Ag (NEGATIVE) RSV (PCR) (NEGATIVE) SARS-CoV-2 (PCR) (NEGATIVE) - Radiology Impressions Radiology Exams & Impressions: Radiology Procedures Category Date Time Status CHEST 1 VIEW (PORTABLE) Stat Exams 02/13/24 11:42 Completed HIP UNI (2V) INCL PEL IF DONE Stat Exams 02/13/24 11:42 Completed Telemedicine Encounter - Telemedicine Encounter Telemedicine Encounter: "The entirety of this encounter was performed via Telemedicine" This visit was performed using real-time audio and video connection between my location and thepatients locationwith the assistance of a surrogateat the patients location. Written or verbal consent was obtained from the patient/guardian to perform this visit [email or web address]. Any patient questions regarding the telemedicine interaction were answered.
[2024-02-13 18:11] VITALS: BP 116/95; PULSE 125; RESP 22
[2024-02-14 00:16] VITALS: O2SAT 85
== END 2024-02-13 19:25 | disposition short-term general hospital (02) ==
LOC: ED 11:26
DX: I48.20 Chronic atrial fibrillation, unspecified (principal); M25.551 Pain in right hip; W19.XXXA Unspecified fall, initial encounter; N39.0 Urinary tract infection, site not specified; E11.621 Type 2 diabetes mellitus with foot ulcer; Z89.512 Acquired absence of left leg below knee; I25.10 Atherosclerotic heart disease of native coronary artery without angina pectoris; Z79.01 Long term (current) use of anticoagulants; E11.9 Type 2 diabetes mellitus without complications; Z79.899 Other long term (current) drug therapy
CPT/HCPCS: 0241U; 36000; 36415; 71045; 73502; 80053; 81001; 82947; 83605; 83735; 83880; 84145; 84484; 85025; 87040; 87086; 93005; 93041; 96365; 96366; 96367; 96374; 96375; 99285; J0878; J1335; J2405; J3010; J0282